=== PATIENT | male | born 1955 | race Caucasian/White ===

== ENCOUNTER → 2019-05-05 08:05 | Outpatient (BNVA) | payer MEDICARE, MEDICAID, SELFPAY | PROVIDERS: Family Provider Internal Medicine; PCP Internal Medicine; Visit Provider Specialist | DX: M25.561 Pain in right knee (principal) | CPT/HCPCS: 73560; 73565 ==

== ENCOUNTER → 2020-01-25 11:34 | Outpatient (BNVA) | payer MEDICARE, MEDICAID, SELFPAY | PROVIDERS: Family Provider Internal Medicine; PCP Internal Medicine; Visit Provider Nurse Practitioner Family | DX: Z20.828 Contact with and (suspected) exposure to other viral communicable diseases (principal); J06.9 Acute upper respiratory infection, unspecified | CPT/HCPCS: 87635 ==

== ENCOUNTER → 2020-03-23 12:19 | Outpatient (BNVA) | payer MEDICARE, MEDICAID, SELFPAY | PROVIDERS: Family Provider Internal Medicine; PCP Internal Medicine; Visit Provider Specialist | DX: M17.11 Unilateral primary osteoarthritis, right knee (principal); M17.12 Unilateral primary osteoarthritis, left knee | CPT/HCPCS: 73560; 73565 ==

== ENCOUNTER → 2020-06-22 08:07 | Outpatient (BNVA) | payer MEDICARE, MEDICAID, SELFPAY | PROVIDERS: Family Provider Internal Medicine; PCP Internal Medicine; Visit Provider Specialist | DX: M17.0 Bilateral primary osteoarthritis of knee; E66.01 Morbid (severe) obesity due to excess calories; Z68.41 Body mass index [BMI] 40.0-44.9, adult; Z87.891 Personal history of nicotine dependence | CPT/HCPCS: 73560; 73565 ==

== ENCOUNTER → 2020-07-11 10:03 | Day surgery (SDC) | payer MEDICARE, MEDICAID, SELFPAY | PROVIDERS: PCP Internal Medicine; Visit Provider Specialist | DX: Z01.818 Encounter for other preprocedural examination (principal) | CPT/HCPCS: 93005 ==

== ENCOUNTER → 2020-07-13 13:53 | Outpatient (BNVA) | payer MEDICARE, MEDICAID, SELFPAY | PROVIDERS: PCP Internal Medicine; Visit Provider Specialist | DX: M17.11 Unilateral primary osteoarthritis, right knee (principal); M17.12 Unilateral primary osteoarthritis, left knee; Z20.822 Contact with and (suspected) exposure to COVID-19 | CPT/HCPCS: 87635 ==

== ENCOUNTER 2020-07-18 14:22 | Observation (INO) | payer MEDICARE, MEDICAID, SELFPAY ==
[2020-07-11 09:34] VITALS: BMI 40.6
--- NOTE | 2020-07-11 10:03 | ECG_ITS ---
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 Measurements Intervals [place] Rate: 77 P: -31 VT: 162 QRS: 23 QRSD: 113 T: 45 QT: 391 QTc: 443 Interpretive Statements SINUS RHYTHM LOW QRS VOLTAGE IN PRECORDIAL LEADS [QRS DEFLECTION < 1.0 mV IN CHEST LEADS] INCOMPLETE RIGHT BUNDLE BRANCH BLOCK [90+ ms QRS DURATION, TERMINAL R IN V1/V2, 40+ ms S IN I/aVL/V4/V5/V6] POSSIBLE LATERAL MYOCARDIAL INFARCTION [30 ms Q WAVE IN I/aVL/V5/V6], PROBABLY OLD Compared to ECG 10/12/2016 20:23:27 Myocardial infarct finding now present Electronically Signed On 07-12-2020 7:03:26 CDT by Paulina Dennison M.D. [id number]
[2020-07-11 10:11] LABS: Add Urine Microscopic? NO; Charge for UA Resulting for Rev
[2020-07-11 10:18] LABS: Basophils # 0.1 10^3/uL (0.0-0.1); Basophils % 1.3 %; Eosinophils # 0.4 10^3/uL (0.0-0.8); Eosinophils % 5.1 %; Hematocrit 45.8 % (42.0-52.0); Hemoglobin 15.3 g/dL (11.7-16.6); Mean Corpuscular HGB Conc 33.4 g/dL (30.0-36.0); Mean Corpuscular Hemoglobin 30.9 pg (28.0-34.0); Mean Corpuscular Volume 92.5 fL (80-94); Mean Platelet Volume 9.1 fL (7.4-10.4); Monocytes # 0.5 10^3/uL (0.2-0.9); Monocytes % 7.8 %; Neutrophils # 3.78 10^3/uL (1.8-7.7); Neutrophils % 55.7 %; Nucleated Red Blood Cells % 0 %; Platelet Count 224 10^3/cmm (130-400); Red Blood Count 4.95 10^6/uL (4.1-5.3); Red Cell Distribution Width 12.5 % (12.1-15.1); White Blood Count 6.8 10^3/uL (4.0-10.0)
[2020-07-11 10:28] LABS: Bilirubin Urine Neg (Negative); Blood Urine Neg (Negative); Glucose Urine UA Norm (Normal); Ketones Urine Negative (Negative); Leukocyte Esterase Urine Negative (Negative); Nitrate Urine Negative (Negative); Protein Urine Neg (Negative); Specific Gravity, Urine 1.005 (1.005-1.030); Urine Appearance Clear (CLEAR); Urine Color Straw (Yellow); Urobilinogen Urine Norm (Negative); pH Urine 6.5 (5-7)
[2020-07-11 10:36] LABS: Alanine Aminotransferase 16 U/L (0-41); Albumin Level 3.9 g/dL (3.5-5.2); Alkaline Phosphatase 62 IU/L (40-130); Anion Gap 12.5 (5-19); Aspartate Amino Transferase 15 U/L (0-40); Blood Urea Nitrogen 17 mg/dL (8-23); Calcium 8.7 mg/dL (8.5-10.5); Carbon Dioxide 27 mmol/L (22-29); Chloride 102 mmol/L (98-107); Globulin 3.5 g/dL (1.3-4.6); Glomerular Filtration Rate 215.2 mL/min (90-130); Glucose 109 mg/dL (65-115); Osmolality Calculated 286 mOsm/kg (285-295); Potassium 4.5 mmol/L (3.5-5.1); Sodium 137 mmol/L (136-145); Total Bilirubin 0.3 mg/dL (0.15-1.2); Total Protein 7.4 g/dL (6.6-8.7)
--- NOTE | 2020-07-11 17:21 | P.ANESASSM_ITS ---
Pre-Anesthetic Assessment Pre-Anesthetic Assessment: Height/Weight: Height 1.83 m Weight 136.078 kg Proposed Procedure: Operation Date: 07/18/20 14:25 Proposed Procedures p Total Knee Arthroplasty 41695 M17.10(Right) - Perla Frost MD Was Beta Roz taken within 24 hours: N/A Was Clonidine taken within 24 hours: N/A Social: Social History: Tobacco and No alcohol Exam: Pre-Anes Outpt Exam: alert, oriented x 3, clear to auscultation bilaterally and regular rate & rhythm Airway: Submandibular: WNL Cervical ROM: Other (limited) MP: 2 Pulmonary: Pulmonary: COPD CV/HEM: CV/HEM: CAD and HTN : : None reported Hepatic: Hepatic: None reported GI: GI: None reported Metabolic: Metabolic: Morbid obesity Musc/skel: Musc/skel: OA/DJD Neuropsych: Neuropsych: Depression Anesthetic Plan: ASA status: 3 Anesthesia: Regional (specify below) (Spinal with Adductor Canal Block) Risk of > 500 ml blood loss (7ml/kg in children): Yes, adequate IV access and fluids planned PFSH Anesthesia PFSH: Social History Smoking and tobacco status: current every day smoker cigarettes Packs smoked per day: 2.5 Alcohol intake: former Data Anesthesia CBC & Chem 7: 07/11/20 09:55 07/11/20 09:55 Other Labs: Laboratory Results - last 48 hr 07/11/20 07/11/20 07/11/20 09:55 09:55 10:00 WBC 6.8 RBC 4.95 Hgb 15.3 Hct 45.8 MCV 92.5 MCH 30.9 MCHC 33.4 RDW 12.5 Plt Count 224 MPV 9.1 Neut % (Auto) 55.7 Lymph % (Auto) 30.0 [place] % (Auto) 7.8 Eos % (Auto) 5.1 Baso % (Auto) 1.3 Neut # (Auto) 3.78 Lymph # (Auto) 2.0 [place] # (Auto) 0.5 Eos # (Auto) 0.4 Baso # (Auto) 0.1 Nucleated RBC % (auto) 0 Nucleated RBCs # 0.0 Sodium 137 Potassium 4.5 Chloride 102 Carbon Dioxide 27 Anion Gap 12.5 BUN 17 Creatinine 0.4 L GFR Calculation 215.2 H Glucose 109 Calculated Osmolality 286 Calcium 8.7 Total Bilirubin 0.3 AST 15 ALT 16 Alkaline Phosphatase 62 Total Protein 7.4 Albumin 3.9 Globulin 3.5 Urine Color Straw Urine Appearance Clear Urine pH 6.5 Ur Specific [place] 1.005 Urine Protein Neg Urine Glucose (UA) Norm Urine Ketones Negative Urine Blood Neg Urine Nitrate Negative Urine Bilirubin Neg Urine Urobilinogen Norm Ur Leukocyte Esterase Negative Cardiac Studies: No Data to Display
[2020-07-18] VITALS (19 sets, daily range): BP systolic 82–147; BP diastolic 52–97; PULSE 70–98; RESP 8–20; TEMP 36.9–37.7; O2SAT 91–97
[2020-07-18] MEDS: acetaminophen 1,000 MG/100 ML PIGGYBACK 400 MG IV ×2 (08:55→17:35)
[2020-07-18] MEDS: CELEcoxib 200 mg Capsule 400 MG PO (09:03)
--- NOTE | 2020-07-18 09:31 | P.ANESUD_ITS ---
Pre-Anesthetic Update Pre-Anesthetic Assessment: Date of Surgery/Procedure: 07/18/20 Preop Pauline gnosis: Primary osteoarthritis right knee Proposed Procedure: Operation Date: 07/18/20 10:35 Proposed Procedures p Total Knee Arthroplasty 51513 M17.10(Right) - Perla Frost MD Any changes to Pre-Anesthetic Assessment?: No Last Intake: Intake Last Liquid Date 07/17/20 Last Liquid Time 22:00 Last Solid Date 07/17/20 Last Solid Time 22:00 Vitals: Temperature 98.4 F 07/18/20 08:33 Temperature Source Temporal Artery S can 07/18/20 08:33 Pulse Rate 80 07/18/20 08:33 Pulse Rhythm 07/18/20 08:33 Pulse Strength 3+ Normal 07/18/20 08:33 Respiratory Rate 18 07/18/20 08:33 Blood Pressure 134/97 07/18/20 08:33 Blood Pressure Yesika n 109 07/18/20 08:33 Pulse Oximetry 94 07/18/20 08:33 Oxygen Delivery Me thod 07/18/20 08:33 Exam: Pre-Anes Outpt Exam: alert, oriented x 3, clear to auscultation bilaterally and regular rate & rhythm Cardiac Studies: No Data to Display
--- NOTE | 2020-07-18 09:41 | P.HPUD_ITS ---
Surgery/Procedure H&P Update DATE OF PROCEDURE: July 18, 2020 DATE H&P PERFORMED: 06/22/20 H&P UPDATE INFORMATION: I have reviewed H&P completed within last 30 days, I have examined patient prior to procedure, No changes to prior documentation and H&P is in [facility] EMR on date indicated PREOP DIAGNOSIS: Primary osteoarthritis right knee PLANNED PROCEDURE: Operation Date: 07/18/20 10:35 Proposed Procedures p Total Knee Arthroplasty 24110 M17.10(Right) - Perla Frost MD Related Problem List Diagnoses (1) Primary osteoarthritis of right knee:
--- NOTE | 2020-07-18 09:47 | ANES.PROC ---
Anesthesia Procedures Procedure/Date: 07/18/20 Nerve Block ^: Nerve Block 1: Main Anesthesia: general anesthesia Time Out Performed: Yes Consent: requested by attending/covering physician, from patient, risks and benefits reviewed and patient agrees to proceed Nerve block location: adductor canal (R) Anesthesia monitors applied: pulse oximetry, EKG, BP cuff and oxygen Nerve block position: supine Anesthetic Used: ropivicaine 0.5% and with decadron (4 mg) Amount of anesthesia used (mL): 30 Ultrasound used to: recognize landmarks and visualize and ID femerol nerve Nerve Stimulator Used?: No Interscalene/Femoral BLK: 4 stimuplex 21 g needle used for position and inplane approach, visualize local anesthetic spread and no vascular puncture identified Injection: neg aspiration of heme Patient Tolerated Procedure: well Complications: none
[2020-07-18] MEDS: vancomycin 1,000 MG in sodium chloride 0.9% 250 ML 250 MG IV (11:02)
[2020-07-18] MEDS: vancomycin 1,000 MG SDV 1000 MG XX (12:44)
[2020-07-18] MEDS: ceFAZolin 1,000 mg SDV 2000 MG IRRIGATION (12:45)
--- NOTE | 2020-07-18 14:01 | XR_ITS ---
WS: [id number] Exam: XR knee RT 1-2V 77932 Date/Time of Exam: 07/18/2020 2:01 PM Reason For Exam: Total Knee A total knee prosthesis has been placed and appears to be in excellent position. Postoperative change s in the adjacent soft tissues. Anterior surgical skin clips. XR/XR knee RT 1-2V 36629 IMPRESSION: 1. Total knee replacement in satisfactory alignment.
[2020-07-18] MEDS: morphine 4 mg/mL SDV 1 mL 2 MG IVP (14:04)
--- NOTE | 2020-07-18 14:11 | P.OP_ITS ---
Operative Report Date of procedure: July 18, 2020 Pre-op Diagnosis: Primary osteoarthritis right knee with significant valgus deformity Post-op diagnosis: same Post-op Findings: Significant valgus deformity and degenerative osteoarthritic changes Procedure Done: Right total knee arthroplasty Implants: The Wenceslao total knee system with a size 5 triathlon beaded posterior stabilized femur right, a triathlon titanium tibial component size 6 beaded, a triathlon X3 posterior stabilized tibial bearing insert size 6 X 16 mm and a beaded triathlon titanium asymmetric patella size 38 x 11 mm Specimens removed/disposition: Bone, disposed of Pathology: none sent Surgeon: Perla Frost Offset Assistant Press Operator: Healthcare operating room technicians Anesthesia: General (Intubated, ASA 3 with failed spinal attempt) Estimated blood loss (mL): 25 Tourniquet time (min): 93 Tourniquet time: At 250 mmHg IV fluids (mL): 1,100 Urine output (mL): 300 Complications: None Findings: Valgus deformity with severe degenerative osteoarthritic changes Condition: stable Disposition: PACU (Then to floor for postoperative rehabilitation and pain management with initiation of physical therapy) Brief History: This 65-year-old man presented to the office with severe bilateral knee pain which was incapacitating. He had severe valgus deformity of both knees with the right knee worse than the left. He was unable to ambulate or perform reasonable activities of daily living. None of these activities were able to be accomplished comfortably. He was unresponsive to conservative measures and wished to proceed with right total knee arthroplasty risks and complications were discussed. Consents were signed preoperatively, and questions were answered. The patient wished to proceed. Procedure: The patient was brought to the operating theater, and after undergoing adequate general intubated anesthesia supplemented with regional block, ASA 3, the right lower extremity was prepped with Dura-Prep and draped in usual fashion following placement of a tourniquet high on the leg. Spinal was attempted, but was unable to be completed. The leg was then draped free. Following prepping and draping, the leg was exsanguinated, and the tourniquet was elevated to 250 mmHg for a total tourniquet time of 93 minutes. Prior to elevation of the tourniquet, but following exposure of the site of surgery, a surgical pause was performed. At the time of the surgical pause, we confirmed the site and side of surgery. Additionally, we confirmed the appropriate and timely administration of preoperative antibiotics, vancomycin 1 g. and Transexemic acid 1 g. The availability of equipment was confirmed, and the patient's identity was verbalized as well. Following the surgical pause, an incision was made centering over the patella continuing proximally and distally as necessary to allow access to the knee joint. Dissection continued through skin and soft tissues using a scalpel. Hemostasis was obtained using electrocautery. The skin incision was followed by a median parapatellar arthrotomy. The leg was extended and the patella was everted. Following this, the leg was returned to flexed position. The distal femur was exposed, and a drill hole was made in this for placement of the distal femoral jig. The distal femoral jig was set at 5? of valgus. The distal femoral cutting block was then placed in appropriate position, and an polo wing was used to confirm an appropriate amount of distal femur would be resected. The distal femoral resection was accomplished with 8 mm of bone being resected distally. After the distal femoral resection had been accomplished, the femur was measured and it measured a size 5. Medial lateral dimension also measured a size 5. A size 5 femoral cutting block was placed in position, and we were then able to accomplish the anterior, posterior and chamfer cuts. This jig was then removed and the notch guide was placed in position. With the notch guide in appropriate position, the notch was excised including resection of the anterior and posterior cruciate ligaments. This notch was to allow for the posterior stabilized femoral component. At this point, the femur was prepared and attention was directed to the proximal tibia. The posterior knee retractor was placed along with medial and lateral retractors. Further resection of the menisci was accomplished as we had better visualization. A complete meniscectomy was performed both medially and laterally with care being taken to protect the popliteus. Retractors were then placed so that the proximal tibia was well visualized. A drill hole was then made in the tibia for placement of the intramedullary guide. This guide was placed so that approximately 2 mm of bone would be resected from the deficient lateral tibial plateau. The intramedullary guide was utilized supplemented with an extramedullary guide to assure appropriate alignment for the proximal tibial resection. The proximal tibial jig was then evaluated, pinned in position, and the proximal tibial resection was accomplished without difficulty. The jig was removed, and the proximal tibia was measured. It measured a size 6. We then attempted a trial reduction with a size 6 by 11 mm and 6 by 13 mm insert. Osteophytes were also removed from the tibia. The femoral component was placed in position for the trial reduction, and the knee was placed through range of motion. With this, there was appropriate patellar tracking. The knee was found to be slightly tight in the posterior aspect, and posterior release was accomplished. Extension was noted to be full as well. After the knee was manipulated following the posterior release, we were able to insert a size 6 x 16 mm insert. With this we had excellent varus valgus alignment and full extension. The knee was stable to varus valgus stress as well. Therefore, this was the chosen component. There was full extension and flexion without lift off and the rotation of the tibia was marked. Alignment was checked from the hip to the ankle, and this was noted to be appropriate as well. Attention was then directed to the patella. The patella was measured with a caliper. We resected sufficient patella to leave approximately 14 mm of patella remaining. Measurements of the patella then indicated that a size asymmetric 38 mm x 11 mm was the appropriate patellar size. We then placed the jig to drill for the 3 pegs of the press-fit patella, and these drill holes were made without incident. A trial patella was then placed, and the knee was placed through range of motion. The patella was noted to track nicely without evidence of subluxation. The femur was prepared for a press-fit femur by drilling 2 holes for the femoral pegs. All trial components were subsequently removed. The tibial tray was then pinned into position, and we broached the tibia for the stem of the tibial component. Subsequently, 4 drill holes were made for placement of the press-fit tibia. This was accomplished without difficulty. Care was taken to assure appropriate rotation of the tibia as well as appropriate position on the proximal tibia. The tibial tray was completely seated on the proximal tibia. Following broaching, the tibial guide was removed, and all surfaces were copiously irrigated. The surfaces were then dried and a bone plug was placed into the distal femur. Exparel was also injected at this point. The Tritanium tibia was impacted into position. The beaded femur was then impacted into position in a cementless fashion. The tibial insert was placed. The patella was pressed into position with a patellar clamp. The knee was irrigated with 20 mL of Betadine and 500 mL of normal saline, and this was allowed to remain in the knee for 3-4 minutes. The knee was then copiously irrigated and suctioned dry. Attention was then directed to closure. Closure was accomplished with 0 Vicryl in the fascial tissues. Following this, a 2-0 Monocryl was used in the subcutaneous tissues, and the skin was closed with skin charis. A sterile dressing was then placed consisting of Dermabond Prineo, Telfa, 4x4's, sterile soft roll, and an Sushil wrap. The patient was returned the Recovery Room in a satisfactory condition. X-rays were obtained there. The patient will be discharged to the floor for postoperative rehabilitation and pain management. Associated Problem List Diagnoses (1) Primary osteoarthritis of right knee:
--- NOTE | 2020-07-18 16:53 | PC.NURSE ---
patient is still not passing gas. patient requesting a stool softener. property underwriter notified Dr Ravi.
--- NOTE | 2020-07-18 17:09 | ANE.PACU2 ---
Inpatient post-anesthesia follow up: Airway intact: Yes Vital signs: Temperature 98.5 F Pulse Rate 78 Respiratory Rate 17 Blood Pressure 142/79 Pulse Oximetry 96 Oxygen Delivery Me thod Nasal Cannula Oxygen Flow Rate 2 Fraction of Inspir ed Oxygen Hydration adequate: Yes Nausea and vomiting: No Pain level: 2 Mental status: Baseline
[2020-07-18] MEDS: iron polysaccharide complex 150 mg Capsule PO (17:34)
[2020-07-18] MEDS: sennosides-docusate Tablet 2 TAB PO (17:34)
[2020-07-18] MEDS: calcium carbonate 500 mg Chew Tablet 1000 MG PO (17:34)
[2020-07-18] MEDS: mupirocin oint 22 gm 1 APPLIC NASAL (17:35)
[2020-07-18] MEDS: chlorhexidine gluconate 0.12% Btl 473 mL 30 ML MUCOUS MEM ×2 (17:35→21:37)
[2020-07-18] MEDS: oxyCODONE 5 mg IR Tab/Cap PO (21:37)
[2020-07-18] MEDS: CELEcoxib 200 mg Capsule PO (21:37)
[2020-07-19] VITALS: BP 109/68; PULSE 73; RESP 20; TEMP 36.9; O2SAT 92
[2020-07-19] MEDS: acetaminophen 1,000 MG/100 ML PIGGYBACK 400 MG IV ×2 (00:31→08:08)
[2020-07-19 02:44] LABS: Basophils % 0.2 %; Hematocrit 40.5 % (42.0-52.0); Hemoglobin 13.3 g/dL (11.7-16.6); Lymphocytes # 1.4 10^3/uL (0.8-4.8); Lymphocytes % 9.9 %; Mean Corpuscular HGB Conc 32.8 g/dL (30.0-36.0); Mean Corpuscular Hemoglobin 30.8 pg (28.0-34.0); Mean Corpuscular Volume 93.8 fL (80-94); Mean Platelet Volume 9.1 fL (7.4-10.4); Monocytes # 0.8 10^3/uL (0.2-0.9); Neutrophils # 11.69 10^3/uL (1.8-7.7); Neutrophils % 83.6 %; Nucleated Red Blood Cells % 0 %; Platelet Count 210 10^3/cmm (130-400); Red Blood Count 4.32 10^6/uL (4.1-5.3); Red Cell Distribution Width 12.1 % (12.1-15.1)
[2020-07-19 03:00] LABS: Anion Gap 9.7 (5-19); Blood Urea Nitrogen 18 mg/dL (8-23); Calcium 7.9 mg/dL (8.5-10.5); Carbon Dioxide 28 mmol/L (22-29); Chloride 102 mmol/L (98-107); Glomerular Filtration Rate 166.4 mL/min (90-130); Glucose 133 mg/dL (65-115); Osmolality Calculated 284 mOsm/kg (285-295); Potassium 4.7 mmol/L (3.5-5.1); Sodium 135 mmol/L (136-145)
[2020-07-19 03:59] VITALS: BP 115/63; PULSE 72; RESP 19; TEMP 36.8; O2SAT 97
[2020-07-19 07:21] VITALS: BP 113/67; PULSE 71; RESP 18; TEMP 36.9; O2SAT 96
[2020-07-19 07:53] VITALS: PULSE 76; RESP 18; O2SAT 92
[2020-07-19] MEDS: montelukast sodium 10 mg Tablet PO (08:06)
[2020-07-19] MEDS: multivitamin therapeutic Tablet 1 TAB PO (08:06)
[2020-07-19] MEDS: loratadine 10 mg Tablet PO (08:06)
[2020-07-19] MEDS: PARoxetine 20 mg Tablet 10 MG PO (08:06)
[2020-07-19] MEDS: calcium carbonate 500 mg Chew Tablet 1000 MG PO (08:07)
[2020-07-19] MEDS: hydroCHLOROthiazide 25 mg Tablet 12.5 MG PO (08:07)
[2020-07-19] MEDS: lisinopril 20 mg Tablet PO (08:07)
[2020-07-19] MEDS: aspirin 325 mg EC Tablet PO (08:07)
[2020-07-19] MEDS: TRAMadol 50 mg Tablet PO (08:07)
[2020-07-19] MEDS: gabapentin 300 mg Capsule PO (08:07)
[2020-07-19] MEDS: cholecalciferol (vitamin D3) 5,000 unit Tablet 10000 UNIT PO (08:08)
[2020-07-19] MEDS: chlorhexidine gluconate 0.12% Btl 473 mL 30 ML MUCOUS MEM ×2 (08:08→12:10)
[2020-07-19] MEDS: CELEcoxib 200 mg Capsule PO (08:08)
[2020-07-19] MEDS: sennosides-docusate Tablet 2 TAB PO (08:08)
[2020-07-19] MEDS: iron polysaccharide complex 150 mg Capsule PO (08:08)
[2020-07-19] MEDS: vancomycin 1,000 MG in sodium chloride 0.9% 250 ML 250 MG IV (08:09)
[2020-07-19] MEDS: mupirocin oint 22 gm 1 APPLIC NASAL (08:12)
--- NOTE | 2020-07-19 10:05 | PC.CHAP ---
Pastoral Care Encounter/Spiritual Assessment Type of Contact [] Declined laundry housekeeping aide visit [] Patient/Family/Request visit [] Outpatient visit [] Follow-up visit [] Physician referral [] Code/Alert [x] Routine visit [] Staff referral [] Actively dying [] Patient sleeping [] Family support [] [] Out of room [] Palliative care [] [] Receiving care in room [] Pre-surgical visit [] Trauma [] Long length of stay [] ICU visit [] Other: Relational/Emotional Strength [x] Patient feels connected with others/family/visitors/staff [] Distress [] Loneliness/isolation [] Abandonment Spirituality of Patient [x] Person of Dina [] Attends Hindu of their Dina [x] Believes in Prayer [] Reads Bible or Scientology materials [] There are Spiritual issues to be addressed Derrick Hand Interventions [x] Prayer [] Active listening [] Non-anxious presence [] Spiritual/emotional support [] Crisis/trauma care [] Spiritual counseling [] Bereavement support [] Provided bereavement packet [x] Provided Bible/devotional materials [] Provided toy/stuffed animal, coloring book to patient or family member [] Provided Communion [] Anointing/[place] [] Salvation [x Impact on Illness or Injury [] Angry [] Fearful [] Anxious [] Often cries [] Exhaustion [] Unable to work [] Unable to attend latter day [] Unable to walk/stand [] Unable to read [] Unable to drive [] Unable to eat/drink [] Unable to sleep [] Unable to be with family [] Patient intubated [] Other: Summary Time spent with patient 10 min
[2020-07-19 10:58] VITALS: BP 119/77; PULSE 74; RESP 18; TEMP 36.7; O2SAT 95
--- NOTE | 2020-07-19 13:05 | PC.NURSE ---
dressing removed by Dr Frost. typewriter operator automatic applied island dressing.
--- NOTE | 2020-07-19 13:33 | P.DS_ITS ---
Discharge Providers Date of Admission: 07/18/20 14:22 Date of Discharge: July 19, 2020 Attending Provider at Admission: Perla Frost MD Attending Provider at Discharge: Perla Frost MD Primary Care Provider: Marilynn Canales Diagnoses at Discharge Discharge Diagnosis (1) Primary osteoarthritis of right knee: Status: Acute (2) History of total right knee replacement: Status: Acute Reason for Visit Reason for Visit: Osteoarthritis right knee Physical Exam Const: COMMON NORMALS: no acute distress, average body habitus, patient oriented x3 and alert GENERAL APPEARANCE: cooperative and comfortable ORIENTATION/CONSCIOUSNESS: Yes awake HENMT: COMMON NORMALS: normocephalic and atraumatic HEAD & SCALP: normocephalic and atraumatic Eye: GENERAL EYE: appearance normal, both eyes and all related structures Chest: COMMONS NORMALS: normal inspection of the chest Resp: COMMON NORMALS: normal respiratory effort EFFORT & INSPECTION: Yes able to speak in complete sentences and Yes symmetric chest movement Extremity: RIGHT LOWER EXTREMITY: Yes knee joint (No drainage. Dressing removed, Prineo intact) Right knee: Yes inspection (Dressing is removed and there is minimal to no bruising.), Yes palpation (Minimal tenderness. ), Yes ROM (Able to straight leg raise.) and Yes neurovascular exam (Intact with no evidence of DVT.) Neuro: COMMON NORMALS: patient oriented x3 SENSORIUM/ORIENTATION: Yes alert Psych: COMMON NORMALS: mental status grossly normal APPEARANCE: Yes grossly normal ATTITUDE: Yes calm and Yes engaged ATTENTION/CONCENTRATION: Yes attention grossly intact Skin: COMMON NORMALS: no rashes or lesions noted GENERAL SKIN EXAM: no rashes or lesions noted Urinary Catheter Management^: F: Cath Placed During This Visit: yes, but has since been removed by the nurse Reason for Continuing Indwelling Catheter: Decision to DC Catheter Urinary Catheter Date of Insertion: 07/18/20 Urinary Catheter Time of Insertion: 11:15 Date Urinary Catheter Removed: 07/19/20 Time Urinary Catheter Discontinued: 06:15 Discharge Data Data Completed and Pending: Completed Studies During Hospitalization Category Date Time Status XR knee RT 1-2V 7 3560 Urgent Exams 07/18/20 14:01 Completed Labs from last 24 hours 07/19/20 07/19/20 02:20 02:20 WBC 14.0 H RBC 4.32 Hgb 13.3 Hct 40.5 L MCV 93.8 MCH 30.8 MCHC 32.8 RDW 12.1 Plt Count 210 MPV 9.1 Neut % (Auto) 83.6 Lymph % (Auto) 9.9 [place] % (Auto) 6.0 Eos % (Auto) 0.0 Baso % (Auto) 0.2 Neut # (Auto) 11.69 H Lymph # (Auto) 1.4 [place] # (Auto) 0.8 Eos # (Auto) 0.0 Baso # (Auto) 0.0 Nucleated RBC % (a uto) 0 Nucleated RBCs # 0.0 Sodium 135 L Potassium 4.7 Chloride 102 Carbon Dioxide 28 Anion Gap 9.7 BUN 18 Creatinine 0.5 L GFR Calculation 166.4 H Glucose 133 H Calculated Osmolal ity 284 L Calcium 7.9 L Vitals: Last Vital Signs Temp 98.0 F 07/19/20 10:58 Pulse 74 07/19/20 10:58 Resp 18 07/19/20 10:58 BP 119/77 07/19/20 10:58 Pulse Ox 95 07/19/20 10:58 Discharge Plan Discharge Patient Disposition: Home Health Service Condition: Stable Prescriptions: New acetaminophen 500 mg Tablet 1,000 mg PO Q8H 15 Days Qty: 90 RF: 0 aspirin 325 mg Tablet,Delayed Release (Dr/Ec) 325 mg PO DAILY 30 Days Qty: 0 RF: 0 celecoxib 200 mg Capsule 200 mg PO DAILY Qty: 30 RF: 0 Continued cholecalciferol (vitamin D3) 10,000 unit capsule 10,000 unit PO DAILY RF: 0 gabapentin [Neurontin] 300 mg capsule 300 mg PO DAILY RF: 0 montelukast [Singulair] 10 mg tablet 10 mg PO DAILY RF: 0 albuterol sulfate 90 mcg/actuation aerosol powdr breath activated 2 inh INHALATION Q6H PRN (Reason: Shortness Of Breath) RF: 0 guaifenesin 400 mg tablet 400 mg PO QID RF: 0 nitroglycerin [Nitrostat] 0.4 mg tablet, sublingual 0.4 mg SUBLINGUAL Q5M PRN (Reason: Chest Pain) RF: 0 albuterol sulfate [Proventil HFA] 90 mcg/actuation HFA aerosol inhaler 2 puff INHALATION Q6H PRN (Reason: Shortness Of Breath) RF: 0 ibuprofen [IBU] 800 mg tablet 800 mg PO Q8H RF: 0 tramadol 50 mg tablet 50 mg PO DAILY RF: 0 loratadine [Allergy Relief (loratadine)] 10 mg tablet 10 mg PO DAILY RF: 0 paroxetine HCl 10 mg tablet 10 mg PO DAILY RF: 0 hydrochlorothiazide 12.5 mg capsule 12.5 mg PO DAILY RF: 0 lisinopril 20 mg tablet 20 mg PO DAILY RF: 0 Held aspirin [Adult Low Dose Aspirin] 81 mg tablet,delayed release (DR/EC) 81 mg PO DAILY RF: 0 Hold Instructions: Resume on 08/16/20. Discharge Orders: Discharge Order (Routine); Ordered 07/19/20 Ordered By: Perla Frost Referrals: Perla Frost MD [Physician] - 08/04/20 10:00 am (This will be for a nurse visit and staple removal. You will then follow-up with me on August 09 at 11:45 AM) Discharge Diet: Advance as tolerated and Usual diet Discharge Activity: Increase activity as tolerated, Limit activity as instructed, Use walker/crutches as instructed and As per PT/OT instructions Patient Instructions: Acetaminophen (By mouth), Aspirin (By mouth), Celecoxib (By mouth), Total Knee Replacement (DC), Surgical Site Infections (GEN), Opioid Safety Activity Restrictions/Additional Instructions: Ice and elevation to right lower extremity. Gait training, strengthening, and range of motion per physical therapy. Discharge Attestations Time Spent in Discharge Care*: greater than 30 min Specific Discharge Activities: educating patient, documenting/other paperwork and evaluating patient/reviewing data Quality Metrics Clinical Quality Measures During this hospital stay, did patient experience: None Coding Level of Care Code Acute [facility] DC note Diagnoses Primary osteoarthritis of right knee M17.11 History of total right knee replacement Z96.651
--- NOTE | 2020-07-19 14:20 | PC.NURSE ---
discharge instructions given to patient. patient verbalized understanding. patient taken to private vehicle via wheelchair by staff.
[2020-07-19 14:22] VITALS: BP 119/77; PULSE 74; RESP 18; TEMP 36.7; O2SAT 95
--- NOTE | 2020-07-21 14:31 | PC.RESP ---
Smoking Cessation information sent to patient.
--- NOTE | 2021-05-08 09:06 | ECG_ITS ---
[facility] Test Date: 2021-05-09 Pat Name: Matthew Cary Department: Room: 261 Gender: Male Tiller Man: : 1955 Requested By: Perla Frost Order Number: [id number] Ana Maria MD: Preston Edgar M.D. Measurements Intervals [place] Rate: 92 P: 45 NE: 164 QRS: 10 QRSD: 89 T: 11 QT: 354 QTc: 438 Interpretive Statements SINUS RHYTHM LOW QRS VOLTAGE IN PRECORDIAL LEADS [QRS DEFLECTION < 1.0 mV IN CHEST LEADS] POSSIBLE RIGHT VENTRICULAR CONDUCTION DELAY [RSR (QR) IN V1/V2] Compared to ECG 05/08/2021 09:12:13 Incomplete right bundle-branch block no longer present Myocardial infarct finding no longer present Electronically Signed On 05-09-2021 18:51:28 CDT by Preston Edgar M.D. [email or web address]
== END 2020-07-19 14:23 | disposition home health service (06) ==
LOC: MEDSURG 14:22
PROVIDERS: Admitting Provider Specialist; PCP Internal Medicine; Visit Provider Specialist
PROC: (CPT 27447; principal; 2020-07-18 10:15)
DX: M17.11 Unilateral primary osteoarthritis, right knee (principal); J44.9 Chronic obstructive pulmonary disease, unspecified; I25.10 Atherosclerotic heart disease of native coronary artery without angina pectoris; I10 Essential (primary) hypertension; E66.01 Morbid (severe) obesity due to excess calories; Z68.41 Body mass index [BMI] 40.0-44.9, adult; F32.9 Major depressive disorder, single episode, unspecified; F17.210 Nicotine dependence, cigarettes, uncomplicated; Z79.82 Long term (current) use of aspirin
CPT/HCPCS: 27447; 36415; 64447; 73560; 76942; 80048; 80053; 81003; 85025; 96365; 97110; 97116; 97161; 97165; 97530; C1776; C9290; G0378; J0330; J0690; J1100; J1170; J2270; J2405; J2704; J2710; J2795; J3010; J3370; J3490; J7050

== ENCOUNTER → 2020-08-09 11:49 | Outpatient (BNVA) | payer MEDICARE, MEDICAID, SELFPAY | PROVIDERS: PCP Internal Medicine; Visit Provider Specialist | DX: Z96.651 Presence of right artificial knee joint (principal); Z47.1 Aftercare following joint replacement surgery | CPT/HCPCS: 73560; 73565 ==

== ENCOUNTER → 2020-09-25 08:03 | Outpatient (BNVA) | payer MEDICARE, MEDICAID, SELFPAY | PROVIDERS: PCP Internal Medicine; Visit Provider Specialist | DX: Z47.1 Aftercare following joint replacement surgery (principal); Z96.651 Presence of right artificial knee joint; M17.12 Unilateral primary osteoarthritis, left knee | CPT/HCPCS: 73560; 73565 ==

== ENCOUNTER → 2021-04-02 08:08 | Outpatient (BNVA) | payer MEDICARE, MEDICAID, SELFPAY | PROVIDERS: PCP Internal Medicine; Visit Provider Specialist | DX: Z96.651 Presence of right artificial knee joint (principal) | CPT/HCPCS: 73560; 73565 ==

== ENCOUNTER → 2021-04-16 14:50 | Outpatient (BNVA) | payer MEDICARE, MEDICAID, SELFPAY | PROVIDERS: PCP Internal Medicine; Visit Provider Specialist | DX: Z96.651 Presence of right artificial knee joint (principal); M17.12 Unilateral primary osteoarthritis, left knee | CPT/HCPCS: 73560; 73565 ==

== ENCOUNTER → 2021-05-08 08:59 | Day surgery (SDC) | payer MEDICARE, MEDICAID, SELFPAY | PROVIDERS: PCP Internal Medicine; Visit Provider Specialist | DX: Z01.818 Encounter for other preprocedural examination (principal) | CPT/HCPCS: 81003; 85025; 93005 ==

== ENCOUNTER → 2021-05-08 09:06 | Day surgery (SDC) | payer MEDICARE, MEDICAID, SELFPAY | PROVIDERS: PCP Internal Medicine; Visit Provider Specialist | DX: Z01.818 Encounter for other preprocedural examination (principal) | CPT/HCPCS: 93005 ==

== ENCOUNTER → 2021-05-09 00:01 | Outpatient (BNVA) | payer MEDICARE, MEDICAID, SELFPAY | PROVIDERS: PCP Internal Medicine; Visit Provider Specialist | DX: Z20.822 Contact with and (suspected) exposure to COVID-19 (principal); M17.12 Unilateral primary osteoarthritis, left knee | CPT/HCPCS: 87635 ==

== ENCOUNTER 2021-05-15 14:18 | Observation (INO) | payer MEDICARE, MEDICAID, SELFPAY ==
[2021-05-08 08:20] VITALS: BMI 40.8
--- NOTE | 2021-05-08 08:38 | ECG_ITS ---
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 Measurements Intervals [place] Rate: 74 P: -35 MI: 150 QRS: 32 QRSD: 117 T: 24 QT: 414 QTc: 461 Interpretive Statements SINUS RHYTHM LOW QRS VOLTAGE IN PRECORDIAL LEADS [QRS DEFLECTION < 1.0 mV IN CHEST LEADS] INCOMPLETE RIGHT BUNDLE BRANCH BLOCK [90+ ms QRS DURATION, TERMINAL R IN V1/V2, 40+ ms S IN I/aVL/V4/V5/V6] POSSIBLE LATERAL MYOCARDIAL INFARCTION , PROBABLY OLD [30 ms Q WAVE IN I/aVL/V5/V6] Compared to ECG 07/11/2020 10:18:51 No significant changes Electronically Signed On 05-09-2021 18:49:43 CDT by Preston Edgar M.D. [id number]
--- NOTE | 2021-05-08 09:12 | P.ANESASSM_ITS ---
Pre-Anesthetic Assessment Height/Weight: Height 1.83 m Weight 136.531 kg Preop Diagnosis: Primary osteoarthritis right knee with significant valgus deformity Operation Date: 05/15/21 07:00 Proposed Procedures p Total Knee [id number]/osteoarthritis left knee M17.10(Left) - Perla Frost MD Familial anesthetic complications: None Social Tobacco 2 pack(s) per day Exam alert, oriented x 3 and regular rate & rhythm b/l lung sounds diminished Airway Submandibular: within normal limits Cervical ROM: within normal limits Mallampati: Class III Dentition: false (Sole upper tooth remnant ) Pulmonary Exertional Dyspnea CV/HEM Arrythmia (Incomplete RBB), Coronary Artery Disease and Myocardial Infarction METS = 4 Hx of enlarged heart None reported Hepatic None reported GI None reported Metabolic Morbid Obesity [facility] [place]/skel None reported Neuropsych None reported Anesthetic Plan ASA status: 3 Anesthesia: Anesthesia Evaluation and General Other: We discussed risk and benefits of general anesthesia including PONV, sore throat (sometimes severe), corneal abrasion, positioning and peripheral nerve injuries, life threatening allergic reaction, post operative ICU admission requiring prolonged intubation, stroke, heart attack, , and rare incidences of recall. Patient consents to proceed with general anesthesia with adductor canal block for post op pain control . We discussed risk and benefits of nerve block for post op pain control including management of pain and titration of pain medications as signs/symptoms of nerve block wearing off begin to appear and/or prior bed. We discussed risk of failed nerve block, vascular injury or other vital structure injury, abscess/infection, LAST, and nerve injury. Prior TKA spinal attempted several times per patient, would prefer general with adductor canal block for post op pain control. Risk of > 500 ml blood loss (7ml/kg in children): No Medications/Allergies Home Medications Medication Instructions Recorded Confirmed Last Taken Type albuterol sulfate 90 mcg/actuation 2 puff INHALATION Q6H PRN 05/05/19 05/08/21 06/07/20 History aerosol inhaler (Proventil HFA) aspirin 81 mg tablet,delayed 81 mg PO DAILY 05/05/19 05/08/21 07/04/20 History release (Adult Low Dose Aspirin) cholecalciferol (vitamin D3) 250 10,000 unit PO DAILY 05/05/19 05/08/21 07/10/20 History mcg (10,000 unit) capsule gabapentin 300 mg capsule 300 mg PO DAILY 05/05/19 05/08/21 07/10/20 20:00 History (Neurontin) guaifenesin 400 mg tablet 400 mg PO QID 05/05/19 05/08/21 07/10/20 History hydrochlorothiazide 12.5 mg capsule 12.5 mg PO DAILY 05/05/19 05/08/21 07/10/20 History ibuprofen 800 mg tablet (IBU) 800 mg PO Q8H 05/05/19 05/08/21 07/10/20 History lisinopril 20 mg tablet 20 mg PO DAILY 05/05/19 05/08/21 07/10/20 History loratadine 10 mg tablet (Allergy 10 mg PO DAILY 05/05/19 05/08/21 07/10/20 History Relief (loratadine)) montelukast 10 mg tablet 10 mg PO DAILY 05/05/19 05/08/21 07/10/20 History (Singulair) nitroglycerin 0.4 mg sublingual 0.4 mg SUBLINGUAL Q5M PRN 05/05/19 05/08/21 Unknown History tablet (Nitrostat) paroxetine HCl 10 mg tablet 10 mg PO DAILY 05/05/19 05/08/21 07/10/20 History tramadol 50 mg tablet 50 mg PO DAILY 05/05/19 05/08/21 07/10/20 History celecoxib 200 mg capsule 200 mg PO DAILY #30 cap 07/19/20 05/08/21 Unknown Rx Allergies Allergy/AdvReac Type Severity Reaction Status Date / Time No Known Allergies Allergy Verified 04/16/21 14:41 [facility] Anesthesia Medical History Enlarged heart History of high blood pressure Social History Smoking and tobacco status: current every day smoker cigarettes Packs smoked per day: 2.5 Alcohol intake: former Data Anesthesia Cardiac Studies: No Data to Display
[2021-05-08 17:43] LABS: Hemoglobin 15.6 g/dL (11.7-16.6); Mean Corpuscular HGB Conc 33.2 g/dL (30.0-36.0); Mean Corpuscular Hemoglobin 31.3 pg (28.0-34.0); Mean Corpuscular Volume 94.4 fl (80-94); Platelet Count 240 10^3/cmm (130-400); Red Blood Count 4.98 10^6/uL (4.1-5.3); White Blood Count 7.5 10^3/uL (4.0-10.0)
[2021-05-08 17:43] LABS: Add Urine Microscopic? NO; Bilirubin Urine Neg (Negative); Blood Urine Neg (Negative); Glucose Urine UA Norm (Normal); Ketones Urine Negative (Negative); Leukocyte Esterase Urine Negative (Negative); Nitrate Urine Negative (Negative); Protein Urine Neg (Negative); Urine Appearance Clear (CLEAR); Urine Color Yellow (Yellow); Urobilinogen Urine Norm (Negative); pH Urine 7 (5-7)
[2021-05-08 17:44] LABS: Basophils # 0.1 10^3/uL (0.0-0.1); Basophils % 1.5 %; Eosinophils # 0.3 10^3/uL (0.0-0.8); Eosinophils % 4.4 %; Lymphocytes # 2.7 10^3/uL (0.8-4.8); Lymphocytes % 36.8 %; Mean Platelet Volume 9.2 fL (7.4-10.4); Monocytes # 0.6 10^3/uL (0.2-0.9); Monocytes % 8.3 %; Neutrophils # 3.64 10^3/uL (1.8-7.7); Neutrophils % 48.9 %; Nucleated Red Blood Cells % 0 %
[2021-05-08 17:44] LABS: Charge for UA Resulting for Rev
[2021-05-15] VITALS (24 sets, daily range): BP systolic 124–182; BP diastolic 68–107; PULSE 75–106; RESP 16–20; TEMP 36.4–37; O2SAT 90–97; BMI 40.7
[2021-05-15] MEDS: CELEcoxib 200 mg Capsule 400 MG PO (06:40)
[2021-05-15] MEDS: acetaminophen 1,000 MG/100 ML PIGGYBACK 400 MG IV ×3 (06:40→22:35)
[2021-05-15] MEDS: sodium chloride 0.9% 1,000 ML 30 ML IV (06:42)
--- NOTE | 2021-05-15 06:45 | P.ANESUD_ITS ---
Pre-Anesthetic Update Pre-Anesthetic Assessment: Date of Surgery/Procedure: 05/15/21 Preop Pauline gnosis: Degenerative osteoarthritis left knee Proposed Procedure: Operation Date: 05/15/21 07:00 Proposed Procedures p Total Knee [id number]/osteoarthritis left knee M17.10(Left) - Perla Frost MD Any changes to Pre-Anesthetic Assessment?: No Last Intake: Intake Last Liquid Date 05/14/21 Last Liquid Time 22:30 Last Solid Date 05/14/21 Last Solid Time 16:00 Labs Last 48hrs: BMP 05/15/21 06:42 Sodium 136 Potassium 4.1 Chloride 99 Carbon Dioxide 28 BUN 21 Creatinine 0.5 L Glucose 148 H Calcium 9.5 Liver Function 05/15/21 Range/Units 06:42 Total Bilirubin 0.6 (0.15-1.2) mg/dL AST 14 (0-40) U/L ALT 17 (0-41) U/L Alkaline Phosphata se 66 (40-130) IU/L Albumin 4.2 (3.5-5.2) g/dL Vitals: Temperature 97.7 F 05/15/21 06:19 Temperature Source Temporal Artery S can 05/15/21 06:19 Pulse Rate 75 05/15/21 06:19 Respiratory Rate 18 05/15/21 06:19 Blood Pressure 133/88 05/15/21 06:19 Blood Pressure Yesika n 103 05/15/21 06:19 Pulse Oximetry 94 05/15/21 06:19 Oxygen Delivery Me thod 05/15/21 06:20 Exam: Pre-Anes Outpt Exam: alert, oriented x 3, clear to auscultation bilaterally and regular rate & rhythm Cardiac Studies: No Data to Display
--- NOTE | 2021-05-15 06:59 | P.HPUD_ITS ---
Surgery/Procedure H&P Update DATE OF PROCEDURE: May 15, 2021 DATE H&P PERFORMED: 04/16/21 H&P UPDATE INFORMATION: I have reviewed H&P completed within last 30 days, I have examined patient prior to procedure, No changes to prior documentation and H&P is in [facility] [place] indicated PREOP DIAGNOSIS: Degenerative osteoarthritis left knee PLANNED PROCEDURE: Operation Date: 05/15/21 07:00 Proposed Procedures p Total Knee [id number]/osteoarthritis left knee M17.10(Left) - Perla Frost MD Related Problem List Diagnoses (1) Primary osteoarthritis of left knee: (2) History of total right knee replacement:
[2021-05-15 07:13] LABS: Alanine Aminotransferase 17 U/L (0-41); Albumin Level 4.2 g/dL (3.5-5.2); Alkaline Phosphatase 66 IU/L (40-130); Anion Gap 13.1 (5-19); Aspartate Amino Transferase 14 U/L (0-40); Blood Urea Nitrogen 21 mg/dL (8-23); Calcium 9.5 mg/dL (8.5-10.5); Carbon Dioxide 28 mmol/L (22-29); Chloride 99 mmol/L (98-107); Glomerular Filtration Rate 165.9 mL/min (90-130); Glucose 148 mg/dL (65-115); Osmolality Calculated 288 mOsm/kg (285-295); Potassium 4.1 mmol/L (3.5-5.1); Sodium 136 mmol/L (136-145); Total Bilirubin 0.6 mg/dL (0.15-1.2); Total Protein 7.2 g/dL (6.6-8.7)
--- NOTE | 2021-05-15 08:06 | ANES.PROC ---
Anesthesia Procedures Procedure/Date: 05/15/21 Nerve Block ^: Nerve Block 1: Main Anesthesia: general anesthesia Time Out Performed: Yes Consent: requested by attending/covering physician, from patient, risks and benefits reviewed and patient agrees to proceed Nerve block location: adductor canal (L) Anesthesia monitors applied: pulse oximetry, EKG, BP cuff and oxygen Anesthetic Used: ropivicaine 0.5% (30) and with decadron (4 mg) Ultrasound used to: recognize landmarks and visualize and ID femerol nerve Nerve Stimulator Used?: No Interscalene/Femoral BLK: 4 stimuplex 21 g needle used for position and inplane approach, visualize local anesthetic spread and no vascular puncture identified Injection: neg aspiration of heme Patient Tolerated Procedure: well Complications: none
[2021-05-15] MEDS: vancomycin 1,000 MG SDV 1000 MG XX (08:29)
[2021-05-15] MEDS: ceFAZolin 1,000 mg SDV 2000 MG IRRIGATION (08:29)
--- NOTE | 2021-05-15 10:44 | XRR_ITS ---
PROCEDURE INFORMATION: Exam: XR Left Knee Exam date and time: 05/15/2021 10:48 AM Age: 66 years old Clinical indication: Device placement; Joint replacement hardware; Prior surgery; Surgery date: Post-operative (0-2 days); Additional info: Status post left total knee arthroplasty TECHNIQUE: Imaging protocol: XR Left knee. Views: 1 or 2 views. COMPARISON: CR XR knees AP WB w LT lmt ORTH 04/16/2021 2:57 PM FINDINGS: Bones/joints: The patient is status post left total knee arthroplasty with patellar resurfacing. No evidence of hardware related complication. No fracture or dislocation. Expected postoperative soft tissue changes noted. Surgical skin clips project over the anterior soft tissues. Soft tissues: See Bones/joints finding. XR/XR knee LT 1-2V [id number] IMPRESSION: Status post left total knee arthroplasty, without evidence of hardware related complication.
--- NOTE | 2021-05-15 11:10 | PM.OP ---
Operative Report Date of procedure: May 15, 2021 Pre-op diagnosis: Degenerative osteoarthritis left knee with valgus deformity Post-op diagnosis: Degenerative osteoarthritis left knee with valgus deformity Post-op findings: Valgus deformity with no flexion contracture and significant osteophyte formation Procedure done: Left total knee arthroplasty Implants: The [place] total knee system with a size 5 triathlon beaded posterior stabilized femur left, a triathlon titanium tibial component size 6 beaded, a triathlon X3 posterior stabilized tibial bearing insert size 6 X 11 mm and a beaded triathlon titanium asymmetric patella size 38 x 11 mm Specimens removed/disposition: Bone, disposed of Surgeon: Perla Frost Attendant Campground: [facility] superintendent operating Anesthesia: General (Intubated, ASA 3) Estimated blood loss (mL): 25 Tourniquet time (min): 120 (At 250 mmHg) IV fluids (mL): 1,300 Urine output (mL): 275 Complications: None Findings: Severe degenerative osteoarthritic changes with valgus, no flexion contracture. Condition: stable Disposition: PACU (Then to floor for observation overnight with pain management and initiation of therapy) Brief History: This 65-year-old man presented to the office with severe bilateral knee pain which was incapacitating.? He had severe valgus deformity of both knees with the right knee worse than the left.? He was unable to ambulate or perform reasonable activities of daily living.? None of these activities were able to be accomplished comfortably.? He was unresponsive to conservative measures. He underwent right total knee arthroplasty on July 18, 2020, and he has recovered nicely from this. Further discussion was undertaken with the patient, and he wished to proceed with left total knee arthroplasty risks and complications were discussed.? Consents were signed preoperatively, and questions were answered.? The patient wished to proceed. Procedure: The patient was brought to the operating theater, and after undergoing adequate general intubated anesthesia supplemented with regional block, ASA 3, the left lower extremity was prepped with Dura-Prep and draped in usual fashion following placement of a tourniquet high on the leg.?The leg was then draped free. Following prepping and draping, the leg was exsanguinated, and the tourniquet was elevated to 250 mmHg for a total tourniquet time of 120 minutes.? Prior to elevation of the tourniquet, but following exposure of the site of surgery, a surgical pause was performed. At the time of the surgical pause, we confirmed the site and side of surgery. Additionally, we confirmed the appropriate and timely administration of preoperative antibiotics, Ancef 2 g. and Transexemic acid 1 g. The availability of equipment was confirmed, and the patient's identity was verbalized as well. Following the surgical pause, an incision was made centering over the patella continuing proximally and distally as necessary to allow access to the knee joint. Dissection continued through skin and soft tissues using a scalpel. Hemostasis was obtained using electrocautery. The skin incision was followed by a median parapatellar arthrotomy. The leg was extended and the patella was everted. Following this, the leg was returned to flexed position.? The distal femur was exposed, and a drill hole was made in this for placement of the distal femoral jig. The distal femoral jig was set at 5? of valgus. The distal femoral cutting block was then placed in appropriate position, and an polo wing was used to confirm an appropriate amount of distal femur would be resected.? The distal femoral resection was accomplished with 8 mm of bone being resected distally.? After the distal femoral resection had been accomplished, the femur was measured and it measured a size 5.? Medial lateral dimension also measured a size 5.? A size 5 femoral cutting block was placed in position, and we were then able to accomplish the anterior, posterior and chamfer cuts. This jig was then removed and the notch guide was placed in position. With the notch guide in appropriate position, the notch was excised including resection of the anterior and posterior cruciate ligaments. This notch was to allow for the posterior stabilized femoral component. At this point, the femur was prepared and attention was directed to the proximal tibia. The posterior knee retractor was placed along with medial and lateral retractors. Further resection of the menisci was accomplished as we had better visualization. A complete meniscectomy was performed both medially and laterally with care being taken to protect the popliteus. Retractors were then placed so that the proximal tibia was well visualized. A drill hole was then made in the tibia for placement of the intramedullary guide. This guide was placed so that approximately 2 mm of bone would be resected from the deficient lateral tibial plateau. The intramedullary guide was utilized supplemented with an extramedullary guide to assure appropriate alignment for the proximal tibial resection. The proximal tibial jig was then evaluated, pinned in position, and the proximal tibial resection was accomplished without difficulty. The jig was removed, and the proximal tibia was measured. It measured a size 6. We then attempted a trial reduction with a size 6 by 9 mm followed 6 by 11 mm insert.? Osteophytes were also removed from the tibia prior to the trial reduction.? The femoral component was placed in position for the trial reduction, and the knee was placed through range of motion.? With this, there was appropriate patellar tracking.?? Extension was noted to be full as well.? With this we had excellent varus valgus alignment and full extension.? The knee was stable to varus valgus stress as well.? Therefore, this was the chosen component.? There was full extension and flexion without lift off and the rotation of the tibia was marked.? Alignment was checked from the hip to the ankle, and this was noted to be appropriate as well. Attention was then directed to the patella. The patella was measured with a caliper.? We resected sufficient patella to leave approximately 14 mm of patella remaining.? Measurements of the patella then indicated that a size asymmetric 38 mm x 11 mm was the appropriate patellar size. We then placed the jig to drill for the 3 pegs of the press-fit patella, and these drill holes were made without incident. A trial patella was then placed, and the knee was placed through range of motion. The patella was noted to track nicely without evidence of subluxation.? The femur was prepared for a press-fit femur by drilling 2 holes for the femoral pegs.? All trial components were subsequently removed. The tibial tray was then pinned into position, and we broached the tibia for the stem of the tibial component.? Subsequently, 4 drill holes were made for placement of the press-fit tibia.? This was accomplished without difficulty. Care was taken to assure appropriate rotation of the tibia as well as appropriate position on the proximal tibia. The tibial tray was completely seated on the proximal tibia. Following broaching, the tibial guide was removed, and all surfaces were copiously irrigated. The surfaces were then dried and a bone plug was placed into the distal femur.? Exparel was also injected at this point. The Tritanium tibia was impacted into position.? The beaded femur was then impacted into position in a cementless fashion. The tibial insert was placed. The patella was pressed into position with a patellar clamp.? The knee was irrigated with 20 mL of Betadine and 500 mL of normal saline, and this was allowed to remain in the knee for 3-4 minutes.? The knee was then copiously irrigated and suctioned dry. Attention was then directed to closure. Closure was accomplished with 0 Vicryl in the fascial tissues.? Following this, a 2-0 Monocryl was used in the subcutaneous tissues, and the skin was closed with skin charis. A sterile dressing was then placed consisting of Dermabond Prineo, Telfa, 4x4's, sterile soft roll, and an Sushil wrap. The patient was returned the Recovery Room in a satisfactory condition. X-rays were obtained there.? The patient will be discharged to the floor for postoperative rehabilitation and pain management. Related Problem List Diagnoses (1) Primary osteoarthritis of left knee:
[2021-05-15] MEDS: oxyCODONE 5 mg IR Tab/Cap PO ×3 (12:20→21:06)
--- NOTE | 2021-05-15 13:54 | ANE.PACU2 ---
Inpatient post-anesthesia follow up: Airway intact: Yes Vital signs: Temperature 97.5 F Pulse Rate 80 Respiratory Rate 18 Blood Pressure 176/96 Pulse Oximetry 92 Oxygen Delivery Me thod Room Air Oxygen Flow Rate 3 Fraction of Inspir ed Oxygen 3.5 Hydration adequate: Yes Nausea and vomiting: No Pain level: 2 Mental status: Baseline
[2021-05-15] MEDS: chlorhexidine gluconate 0.12% Btl 473 mL 30 ML MUCOUS MEM ×3 (16:20→21:07)
[2021-05-15] MEDS: sennosides-docusate Tablet 2 TAB PO (16:20)
[2021-05-15] MEDS: iron polysaccharide complex 150 mg Capsule PO (16:20)
[2021-05-15] MEDS: calcium carbonate 500 mg Chew Tablet 1000 MG PO (16:20)
[2021-05-15] MEDS: mupirocin oint 22 gm 1 APPLIC NASAL (16:20)
[2021-05-15] MEDS: CELEcoxib 200 mg Capsule PO (16:37)
[2021-05-16] VITALS (8 sets, daily range): BP systolic 119–145; BP diastolic 69–79; PULSE 83–89; RESP 16–20; TEMP 36.5; O2SAT 92–94
[2021-05-16 05:03] LABS: Hematocrit 36.5 % (42.0-52.0); Hemoglobin 12.6 g/dL (11.7-16.6); Mean Corpuscular HGB Conc 34.5 g/dL (30.0-36.0); Mean Corpuscular Volume 89.9 fl (80-94); Mean Platelet Volume 9.6 fL (7.4-10.4); Platelet Count 209 10^3/cmm (130-400); Red Blood Count 4.06 10^6/uL (4.1-5.3); White Blood Count 13.1 10^3/uL (4.0-10.0)
[2021-05-16 05:18] LABS: Anion Gap 12.1 (5-19); Blood Urea Nitrogen 17 mg/dL (8-23); Calcium 8.9 mg/dL (8.5-10.5); Carbon Dioxide 24 mmol/L (22-29); Chloride 101 mmol/L (98-107); Glomerular Filtration Rate 214.6 mL/min (90-130); Glucose 131 mg/dL (65-115); Osmolality Calculated 279 mOsm/kg (285-295); Potassium 4.1 mmol/L (3.5-5.1); Sodium 133 mmol/L (136-145)
[2021-05-16 05:29] LABS: Slide Review Slide Review Perform
[2021-05-16 05:30] LABS: Absolute Neutrophil 10.5 10^3/cmm (1.4-6.5); Absolute Segmented Neutrophil 8.9 10/cmm (1.6-7.1); Band Neutrophils Absolute 1.6 10^3/cmm (0.0-1.2); Eosinophils 0 %; Lymphocytes 13 %; Lymphocytes Absolute 2.1 10^3/cmm (1.2-3.4); Monocytes Absolute 0.5 10^3/cmm (0.1-0.6); Platelet Estimate Normal (Normal); Segmented Neutrophils 68 %; Total Cells Counted 100 (0-100)
[2021-05-16] MEDS: oxyCODONE 5 mg IR Tab/Cap PO ×3 (06:06→14:12)
[2021-05-16] MEDS: CELEcoxib 200 mg Capsule PO (06:07)
[2021-05-16] MEDS: acetaminophen 1,000 MG/100 ML PIGGYBACK 400 MG IV (06:07)
[2021-05-16] MEDS: multivitamin therapeutic Tablet 1 TAB PO (08:03)
[2021-05-16] MEDS: loratadine 10 mg Tablet PO (08:03)
[2021-05-16] MEDS: hydroCHLOROthiazide 25 mg Tablet 12.5 MG PO (08:03)
[2021-05-16] MEDS: cholecalciferol (vitamin D3) 1,000 unit Tablet 1000 UNIT PO (08:03)
[2021-05-16] MEDS: montelukast sodium 10 mg Tablet PO (08:03)
[2021-05-16] MEDS: chlorhexidine gluconate 0.12% Btl 473 mL 30 ML MUCOUS MEM ×2 (08:03→12:37)
[2021-05-16] MEDS: cholecalciferol (vitamin D3) 5,000 unit Tablet 10000 UNIT PO (08:04)
[2021-05-16] MEDS: sennosides-docusate Tablet 2 TAB PO (08:04)
[2021-05-16] MEDS: gabapentin 300 mg Capsule PO (08:04)
[2021-05-16] MEDS: aspirin 325 mg EC Tablet PO (08:04)
[2021-05-16] MEDS: PARoxetine 20 mg Tablet 10 MG PO (08:04)
[2021-05-16] MEDS: lisinopril 20 mg Tablet PO (08:04)
[2021-05-16] MEDS: calcium carbonate 500 mg Chew Tablet 1000 MG PO (08:04)
[2021-05-16] MEDS: iron polysaccharide complex 150 mg Capsule PO (08:04)
[2021-05-16] MEDS: mupirocin oint 22 gm 1 APPLIC NASAL (08:06)
--- NOTE | 2021-05-16 10:23 | PC.CHAP ---
Pastoral Care Encounter/Spiritual Assessment Type of Contact [] Declined underwater trapper visit [] Patient/Family/Request visit [] Outpatient visit [] Follow-up visit [] Physician referral [] Code/Alert [x] Routine visit [] Staff referral [] Actively dying [] Patient sleeping [] Family support [] [] Out of room [] Palliative care [] [x] Receiving care in room [] Pre-surgical visit [] Trauma [] Long length of stay [] ICU visit [] Other: Relational/Emotional Strength [] Patient feels connected with others/family/visitors/staff [] Distress [] Loneliness/isolation [] Abandonment Spirituality of Patient [] Person of Dina [] Attends [employer] of their Dina [] Believes in Prayer [] Reads Bible or Mormonism materials [] There are Spiritual issues to be addressed Canvas Shrinker Interventions [] Prayer [] Active listening [] Non-anxious presence [] Spiritual/emotional support [] Crisis/trauma care [] Spiritual counseling [] Bereavement support [] Provided bereavement packet [] Provided Bible/devotional materials [] Provided toy/stuffed animal, coloring book to patient or family member [] Provided Communion [] Anointing/[place] [] Salvation [] Completed spiritual assessment [] Other: Impact on Illness or Injury [] Angry [] Fearful [] Anxious [] Often cries [] Exhaustion [] Unable to work [] Unable to attend latter-day [] Unable to walk/stand [] Unable to read [] Unable to drive [] Unable to eat/drink [] Unable to sleep [] Unable to be with family [] Patient intubated [] Other: Summary Time spent with patient
[2021-05-16] MEDS: ibuprofen 800 mg tablet PO (11:12)
--- NOTE | 2021-05-16 13:45 | PM.DCS ---
Discharge Providers Date of Admission: 05/15/21 14:18 Date of Discharge: May 16, 2021 Attending Provider at Admission: Perla Frost MD Attending Provider at Discharge: Perla Frost MD Primary Care Provider: Marilynn Canales Diagnoses at Discharge Discharge Diagnosis (1) Primary osteoarthritis of left knee: Status: Acute (2) Status post total left knee replacement not using cement: Status: Acute Permanent problem details: Date of procedure: May 15, 2021 Diagnosis: Degenerative osteoarthritis left knee with valgus deformity Post-op findings: Valgus deformity with no flexion contracture and significant osteophyte formation Procedure done: Left total knee arthroplasty Implants: The [employer] total knee system with a size 5 triathlon beaded posterior stabilized femur left, a triathlon titanium tibial component size 6 beaded, a triathlon X3 posterior stabilized tibial bearing insert size 6 X 11 mm and a beaded triathlon titanium asymmetric patella size 38 x 11 mm Reason for Visit Reason for Visit: osteoarthritis left knee Brief History: This 65-year-old man presented to the office with severe bilateral knee pain which was incapacitating.? He had severe valgus deformity of both knees with the right knee worse than the left.? He was unable to ambulate or perform reasonable activities of daily living.? None of these activities were able to be accomplished comfortably.? He was unresponsive to conservative measures.? He underwent right total knee arthroplasty on July 18, 2020, and he has recovered nicely from this.? Further discussion was undertaken with the patient, and he wished to proceed with left total knee arthroplasty risks and complications were discussed.? Consents were signed preoperatively, and questions were answered.? The patient wished to proceed. Hospital Course Hospital Course Patient was brought to the hospital for same-day surgery in the form of left total knee arthroplasty. Preoperatively, the patient had significant valgus deformity without flexion contracture. He underwent an uneventful total knee arthroplasty and on the first postoperative day, he was ready for discharge to home. He had worked with physical therapy and was independent in his activities. There was no evidence of DVT. Wound was benign. There were no complications. The patient was discharged home with home health. Physical Exam Const: COMMON NORMALS: no acute distress, average body habitus, patient oriented x3 and alert GENERAL APPEARANCE: cooperative and comfortable ORIENTATION/CONSCIOUSNESS: Yes awake HENMT: COMMON NORMALS: normocephalic and atraumatic HEAD & SCALP: normocephalic and atraumatic Eye: GENERAL EYE: appearance normal, both eyes and all related structures Chest: COMMONS NORMALS: normal inspection of the chest Resp: COMMON NORMALS: normal respiratory effort EFFORT & INSPECTION: Yes able to speak in complete sentences and Yes symmetric chest movement Extremity: LEFT LOWER EXTREMITY: Yes knee joint (Dressing dry and intact.) Left knee: Yes inspection (Minimal ecchymosis.), Yes palpation (Minimal tenderness) and Yes neurovascular exam (No evidence of DVT, neurologically intact.) Neuro: COMMON NORMALS: patient oriented x3 SENSORIUM/ORIENTATION: Yes alert Psych: COMMON NORMALS: mental status grossly normal APPEARANCE: Yes grossly normal ATTITUDE: Yes calm and Yes engaged ATTENTION/CONCENTRATION: Yes attention grossly intact Skin: COMMON NORMALS: no rashes or lesions noted GENERAL SKIN EXAM: no rashes or lesions noted Urinary Catheter Management: King: Cath Placed During This Visit: yes, but has since been removed by the nurse Reason for Continuing Indwelling Catheter: Required Immobilization for Trauma or Surgery or Anesthesia Urinary Catheter Date of Insertion: 05/15/21 Urinary Catheter Time of Insertion: 07:40 Date Urinary Catheter Removed: 05/16/21 Time Urinary Catheter Discontinued: 06:12 Discharge Data Studies Completed and Pending Completed Studies During Hospitalization Category Date Time Status XR knee LT 1-2V [id number] Routine Exams 05/15/21 10:44 Completed Radiology Impressions Knee X-Ray 05/15/21 10:44 IMPRESSION: Status post left total knee arthroplasty, without evidence of hardware related complication. Laboratory Results WBC 13.1 10^3/uL (4.0-10.0) H 05/16/21 04:27 RBC 4.06 10^6/uL (4.1-5.3) L 05/16/21 04:27 Hgb 12.6 g/dL (11.7-16.6) 05/16/21 04:27 Hct 36.5 % (42.0-52.0) L 05/16/21 04:27 MCV 89.9 fl (80-94) 05/16/21 04:27 MCH 31.0 pg (28.0-34.0) 05/16/21 04:27 MCHC 34.5 g/dL (30.0-36.0) 05/16/21 04:27 RDW 12.0 % (12.1-15.1) L 05/16/21 04:27 Plt Count 209 10^3/cmm (130-400) 05/16/21 04:27 MPV 9.6 fL (7.4-10.4) 05/16/21 04:27 Neut % (Auto) 48.9 % 05/08/21 09:38 Lymph % (Auto) Not Reportable 05/16/21 04:27 [place] % (Auto) Not Reportable 05/16/21 04:27 Eos % (Auto) 4.4 % 05/08/21 09:38 Baso % (Auto) 1.5 % 05/08/21 09:38 Neut # (Auto) 3.64 10^3/uL (1.8-7.7) 05/08/21 09:38 Lymph # (Auto) Not Reportable 05/16/21 04:27 [place] # (Auto) Not Reportable 05/16/21 04:27 Eos # (Auto) 0.3 10^3/uL (0.0-0.8) 05/08/21 09:38 Baso # (Auto) 0.1 10^3/uL (0.0-0.1) 05/08/21 09:38 Nucleated RBC % (auto) 0 % 05/08/21 09:38 Total Counted 100 (0-100) 05/16/21 04:27 Atypical Lymphs % 3.0 % (0-5) 05/16/21 04:27 Absolute Neutrophils 10.5 10^3/cmm (1.4-6.5) H 05/16/21 04:27 Segmented Neutrophils 68 % 05/16/21 04:27 Abs Segm Neuts (Man) 8.9 10/cmm (1.6-7.1) H 05/16/21 04:27 Band Neutrophils 12.0 % 05/16/21 04:27 Abs Band Neuts (Man) 1.6 10^3/cmm (0.0-1.2) H 05/16/21 04:27 Absolute Lymphocytes 2.1 10^3/cmm (1.2-3.4) 05/16/21 04:27 Lymphocytes (Manual) 13 % 05/16/21 04:27 Monocytes (Manual) 4.0 % 05/16/21 04:27 Absolute Monocytes 0.5 10^3/cmm (0.1-0.6) 05/16/21 04:27 Eosinophils (Manual) 0 % 05/16/21 04:27 Absolute Eosinophils 0.0 10^3/cmm (0.0-0.7) 05/16/21 04:27 Basophils (Manual) 0.0 % 05/16/21 04:27 Absolute Basophils 0.0 10^3/cmm (0.0-0.2) 05/16/21 04:27 Nucleated RBCs # 0.0 /100WBC 05/08/21 09:38 Platelet Estimate Normal (Normal) 05/16/21 04:27 Sodium 133 mmol/L (136-145) L 05/16/21 04:27 Potassium 4.1 mmol/L (3.5-5.1) 05/16/21 04:27 Chloride 101 mmol/L (98-107) 05/16/21 04:27 Carbon Dioxide 24 mmol/L (22-29) 05/16/21 04:27 Anion Gap 12.1 (5-19) 05/16/21 04:27 BUN 17 mg/dL (8-23) 05/16/21 04:27 Creatinine 0.4 mg/dL (0.7-1.2) L 05/16/21 04:27 GFR Calculation 214.6 mL/min (90-130) H 05/16/21 04:27 Glucose 131 mg/dL (65-115) H 05/16/21 04:27 Calculated Osmolality 279 mOsm/kg (285-295) L 05/16/21 04:27 Calcium 8.9 mg/dL (8.5-10.5) 05/16/21 04:27 Total Bilirubin 0.6 mg/dL (0.15-1.2) 05/15/21 06:42 AST 14 U/L (0-40) 05/15/21 06:42 ALT 17 U/L (0-41) 05/15/21 06:42 Alkaline Phosphatase 66 IU/L (40-130) 05/15/21 06:42 Total Protein 7.2 g/dL (6.6-8.7) 05/15/21 06:42 Albumin 4.2 g/dL (3.5-5.2) 05/15/21 06:42 Globulin 3.0 g/dL (1.3-4.6) 05/15/21 06:42 Urine Color Yellow (Yellow) 05/08/21 08:38 Urine Appearance Clear (CLEAR) 05/08/21 08:38 Urine pH 7 (5-7) 05/08/21 08:38 Ur Specific [place] 1.010 (1.005-1.030) 05/08/21 08:38 Urine Protein Neg (Negative) 05/08/21 08:38 Urine Glucose (UA) Norm (Normal) 05/08/21 08:38 Urine Ketones Negative (Negative) 05/08/21 08:38 Urine Blood Neg (Negative) 05/08/21 08:38 Urine Nitrate Negative (Negative) 05/08/21 08:38 Urine Bilirubin Neg (Negative) 05/08/21 08:38 Urine Urobilinogen Norm mg/dL (Negative) 05/08/21 08:38 Ur Leukocyte Esterase Negative (Negative) 05/08/21 08:38 Vitals Last Vital Signs Temp 97.7 F 05/16/21 03:37 Pulse 83 05/16/21 11:28 Resp 18 05/16/21 11:28 BP 132/75 05/16/21 11:28 Pulse Ox 92 05/16/21 11:28 Discharge Plan Discharge Patient Disposition: Home Health Service Condition: Stable Prescriptions: New acetaminophen 500 mg Tablet 1,000 mg PO Q8H 15 Days Qty: 90 0RF aspirin 325 mg Tablet,Delayed Release (Dr/Ec) 325 mg PO DAILY 30 Days 0RF oxycodone 5 mg Tablet 5 mg PO Q4H PRN (Reason: Moderate Pain) 7 Days Qty: 30 0RF Continued cholecalciferol (vitamin D3) 10,000 unit capsule 10,000 unit PO DAILY 0RF gabapentin [Neurontin] 300 mg capsule 300 mg PO DAILY 0RF montelukast [Singulair] 10 mg tablet 10 mg PO DAILY 0RF guaifenesin 400 mg tablet 400 mg PO QID 0RF nitroglycerin [Nitrostat] 0.4 mg tablet, sublingual 0.4 mg SUBLINGUAL Q5M PRN (Reason: Chest Pain) 0RF albuterol sulfate [Proventil HFA] 90 mcg/actuation HFA aerosol inhaler 2 puff INHALATION Q6H PRN (Reason: Shortness Of Breath) 0RF ibuprofen [IBU] 800 mg tablet 800 mg PO Q8H 0RF tramadol 50 mg tablet 50 mg PO DAILY 0RF aspirin [Adult Low Dose Aspirin] 81 mg tablet,delayed release (DR/EC) 81 mg PO DAILY 0RF Hold Instructions: Resume on 08/16/20. loratadine [Allergy Relief (loratadine)] 10 mg tablet 10 mg PO DAILY 0RF paroxetine HCl 10 mg tablet 10 mg PO DAILY 0RF hydrochlorothiazide 12.5 mg capsule 12.5 mg PO DAILY 0RF lisinopril 20 mg tablet 20 mg PO DAILY 0RF celecoxib 200 mg Capsule 200 mg PO DAILY Qty: 30 0RF Discharge Orders: Discharge Order (Routine); Ordered 05/16/21 Ordered By: Perla Frost Referrals: [facility] [place] Home Care ([facility]) [Outside] Perla Frost MD [Physician] - 05/29/21 9:45 am (First visit will be with the nurse. You will see me with xray on 06/04/21 at 0845.) Discharge Diet: Advance as tolerated and Usual diet Discharge Activity: Increase activity as tolerated, Limit activity as instructed, Use walker/crutches as instructed and As per PT/OT instructions Patient Instructions: Aspirin (By mouth), Oxycodone, Rapid Release (By mouth), Knee Replacement (DC), Opioid Safety Activity Restrictions/Additional Instructions: Elevation to left lower extremity. Gait training, strengthening, and range of motion with physical therapy. You may shower, but leave clear dressing in place. Discharge Attestations Time Spent in Discharge Care*: greater than 30 min Specific Discharge Activities: educating patient, documenting/other paperwork and evaluating patient/reviewing data Quality Metrics Clinical Quality Measures [ No reported AMI, CVA or VTE this stay] Coding Level of Care Code Acute Chg FW DC note Diagnoses Primary osteoarthritis of left knee M17.12 Status post total left knee replacement not using cement Z96.652
[2021-05-16] MEDS: acetaminophen 500 mg Tablet 1000 MG PO (14:12)
== END 2021-05-16 15:15 | disposition home health service (06) ==
LOC: OPMS 14:19 → MEDSURG 21:51
PROVIDERS: Admitting Provider Specialist; PCP Internal Medicine; Visit Provider Specialist
PROC: (CPT 27447; principal; 2021-05-15 07:00)
DX: M17.12 Unilateral primary osteoarthritis, left knee (principal); M21.062 Valgus deformity, not elsewhere classified, left knee; F17.210 Nicotine dependence, cigarettes, uncomplicated; I25.2 Old myocardial infarction; I10 Essential (primary) hypertension
CPT/HCPCS: 27447; 36415; 51702; 64447; 73560; 76942; 80048; 80053; 85007; 85025; 97110; 97116; 97161; 97165; C1776; C9290; G0378; J0330; J0690; J1100; J2370; J2405; J2704; J2710; J2795; J3010; J3370; J3490; J7030

== ENCOUNTER → 2021-06-04 08:01 | Outpatient (BNVA) | payer MEDICARE, MEDICAID, SELFPAY | PROVIDERS: PCP Internal Medicine; Visit Provider Specialist | DX: Z96.651 Presence of right artificial knee joint (principal); E66.01 Morbid (severe) obesity due to excess calories; Z68.41 Body mass index [BMI] 40.0-44.9, adult | CPT/HCPCS: 73560; 73565 ==

== ENCOUNTER → 2021-09-03 07:52 | Outpatient (BNVA) | payer MEDICARE, MEDICAID, SELFPAY | PROVIDERS: PCP Internal Medicine; Visit Provider Nurse Practitioner Family | DX: Z96.652 Presence of left artificial knee joint (principal) | CPT/HCPCS: 73560; 73565; 99213; 99214 ==

== ENCOUNTER → 2022-07-16 10:43 | Outpatient (BNVA) | payer MEDICARE, MEDICAID, SELFPAY | PROVIDERS: PCP Internal Medicine; Visit Provider Nurse Practitioner Family | DX: Z96.653 Presence of artificial knee joint, bilateral (principal) | CPT/HCPCS: 73560; 73565; 99024; 99214 ==

== ENCOUNTER 2023-02-09 08:00 | Emergency (ER) | payer MEDICARE, MEDICAID, SELFPAY ==
[2023-02-09 08:09] VITALS: BP 112/57; PULSE 85; O2SAT 94; BMI 38.0
--- NOTE | 2023-02-09 08:10 | XRR_ITS ---
PROCEDURE INFORMATION: Exam: XR Right Hip Exam date and time: 02/09/2023 8:29 AM Age: 67 years old Clinical indication: Hip pain; Right hip TECHNIQUE: Imaging protocol: Radiologic exam of the right hip. Views: 1 view hip with pelvis when performed. COMPARISON: No relevant prior studies available. FINDINGS: Bones/joints: Mild articular surface narrowing and spurring. No fracture or dislocation. No lytic or sclerotic bone lesion. No acute osseous or joint abnormality. Soft tissues: Unremarkable. XR/XR hip RT 2-3V wo/w pel* [id number] IMPRESSION: Mild degenerative changes.
--- NOTE | 2023-02-09 08:11 | ED_ITS ---
HPI - General Adult General: Chief complaint: Extremity Problem,Nontraumatic Stated complaint: hip pain Time Seen by Provider: 02/09/23 08:05 Source: patient Mode of arrival: ambulatory Limitations: no limitations History of Present Illness: 67-year-old male states been having righ t hip pain over the last 2 days. States it was worse yesterday especially with movement around he states improved with rest he states he took a hydrocodone this morning his pain is currently a 1 out of 10. He states been able to ambulate denies any injuries denies any fevers. Denies any radiation of the pain. He states that he has had bilateral knee replacements. Associated symptoms: Deny chest pain, dyspnea, headache(s), nausea, rash or vomiting Review of Systems Const: Denies: fever(s), chills, body aches or change in appetite ENMT: Denies: throat pain or dental pain Card: Denies: chest pain Resp: Denies: dyspnea GI: Denies: abdominal pain, nausea, vomiting or diarrhea Musc: Reports: extremity pain; Denies: neck pain or back pain Skin/Breast: Denies: rash Neuro: Denies: headache(s) PFS ED PFSH: Medical History History of high blood pressure Enlarged heart Social History Smoking and tobacco/nicotine status: current every day tobacco/nicotine user cigarettes Packs smoked per day: 2.5 Alcohol intake: former Substance/Drug Use: never Physical Exam Const: COMMON NORMALS: no acute distress, patient oriented x3 and healthy ap pearing HENMT: COMMON NORMALS: normocephalic and atraumatic HEAD & SCALP: normocephalic and atraumatic Neck/C-Spine: COMMON NORMALS: full ROM and supple Chest: COMMONS NORMALS: normal inspection of the chest Resp: COMMON NORMALS: normal respiratory effort Cardio: COMMON NORMALS: regular rate, regular rhythm and No murmurs present (Cardio) RATE: regular rate RHYTHM: regular rhythm Extremity: COMMON NORMALS: normal to inspection and full ROM NARRATIVE EXTREMITY EXAM: Slight pain with range of motion right hip able ambulate without any difficulties Neuro: COMMON NORMALS: patient oriented x3, moves all extremities and no focal motor deficits Psych: COMMON NORMALS: mental status grossly normal, Normal thought process present and cooperative THOUGHT PROCESS: Normal thought process present Skin: COMMON NORMALS: no rashes or lesions noted and no wounds GENERAL SKIN EXAM: no rashes or lesions noted Course Vital Signs: Vital signs: Vital Signs Pulse Rate 85 02/09/23 08:09 Blood Pressure 112/57 02/09/23 08:09 Pulse Oximetry 94 02/09/23 08:09 Oxygen Delivery Me thod Room Air 02/09/23 08:09 MDM - General Adult Medical Decision Making Patient presents here with right hip pain x-ray shows no fracture he has no signs of septic joint he is to take ibuprofen along with his tramadol we will get him follow-up with orthopedics he is return if worsening. Medical Records I reviewed the patient's medical records. Lab Data I reviewed the patient's lab results. Radiology Impressions Hip/Pelvis X-Ray 02/09/23 08:10 IMPRESSION: Mild degenerative changes. All radiology interpretation(s) finalized by discharge Discharge Plan Discharge Patient Disposition: Home Clinical Impression: Hip pain, right Condition: Stable Prescriptions: No Action gabapentin [Neurontin] 300 mg capsule 300 mg PO BEDTIME montelukast [Singulair] 10 mg tablet 10 mg PO QAM albuterol sulfate [Proventil HFA] 90 mcg/actuation HFA aerosol inhaler 2 puff INHALATION Q6H PRN (Reason: Shortness Of Breath) ibuprofen [IBU] 800 mg tablet 800 mg PO BID tramadol 50 mg tablet 50 mg PO QAM loratadine [Allergy Relief (loratadine)] 10 mg tablet 10 mg PO QAM lisinopril 20 mg tablet 20 mg PO QAM Tylenol Ex Str Rapid Release 500 mg Tablet 1,500 mg PO Q6H PRN (Reason: Pain) Chest Congestion Relief 100 mg/5 mL liquid 300 mg PO Q8H PRN (Reason: Cough) aspirin 325 mg tablet,delayed release (DR/EC) 325 mg PO QAM paroxetine HCl 30 mg tablet 30 mg PO BEDTIME Nitrostat 0.4 mg Tablet, Sublingual 0.4 mg SUBLINGUAL Q5M PRN (Reason: Chest Pain) Rx Instructions: do not exceed 3 doses per episode hydrochlorothiazide 12.5 mg tablet 12.5 - 25 mg PO QAM Mucinex 600 mg Tablet Extended Release 12hr 600 mg PO QAM Discharge Orders: Discharge ED (Routine); Ordered 02/09/23 Ordered By: Mikayla Duggan Referrals: Perla Frost MD [Physician] - 1-3 days Marilynn Canales [Primary Care Provider] - Discharge Diet: Advance as tolerated Discharge Activity: Resume usual activity Patient Instructions: Hip Pain (ED) Coding Level of Care Code ED Conservation Technician for [place]
[2023-02-09] MEDS: dexamethasone 10 mg/mL INJ IM (08:42)
[2023-02-09] MEDS: ketorolac 30 mg/mL INJ IM (08:42)
--- NOTE | 2023-02-10 10:20 | DCPLANNER ---
Referral was sent to ortho on 02/10/23 at 1023. Clinic to contact patient
== END 2023-02-09 09:05 | disposition home or self-care (01) ==
PROVIDERS: Emergency Provider Emergency Medicine; PCP Internal Medicine
DX: M25.551 Pain in right hip (principal); Z79.82 Long term (current) use of aspirin; F17.210 Nicotine dependence, cigarettes, uncomplicated
CPT/HCPCS: 73502; 96372; 99284; J1100; J1885

== ENCOUNTER → 2023-02-28 08:01 | Outpatient (BNVA) | payer MEDICARE, MEDICAID, SELFPAY | PROVIDERS: PCP Internal Medicine; Referring Provider Emergency Medicine; Visit Provider Nurse Practitioner | DX: M16.11 Unilateral primary osteoarthritis, right hip; M54.41 Lumbago with sciatica, right side | CPT/HCPCS: 73502; 99214 ==

== ENCOUNTER → 2023-05-26 11:06 | Outpatient (BNVA) | payer MEDICARE, MEDICAID, SELFPAY | PROVIDERS: PCP Internal Medicine; Visit Provider Nurse Practitioner | DX: Z96.652 Presence of left artificial knee joint (principal); Z96.651 Presence of right artificial knee joint; M25.561 Pain in right knee; M25.562 Pain in left knee; G89.29 Other chronic pain | CPT/HCPCS: 73560; 73565; 99214 ==

== ENCOUNTER → 2023-10-23 14:38 | Outpatient (BNVA) | payer MEDICARE, MEDICAID, SELFPAY | PROVIDERS: PCP Internal Medicine; Referring Provider Internal Medicine; Visit Provider Internal Medicine Cardiovascular Disease | DX: R06.09 Other forms of dyspnea (principal); R94.31 Abnormal electrocardiogram [ECG] [EKG]; E66.01 Morbid (severe) obesity due to excess calories; Z68.41 Body mass index [BMI] 40.0-44.9, adult; R06.02 Shortness of breath; F17.200 Nicotine dependence, unspecified, uncomplicated; I10 Essential (primary) hypertension; Z98.61 Coronary angioplasty status | CPT/HCPCS: 99204 ==

== ENCOUNTER 2023-12-01 10:21 | Outpatient (CLI) | payer MEDICARE, MEDICAID, SELFPAY ==
[2023-12-01 10:59] VITALS: BMI 40.6
--- NOTE | 2023-12-01 10:59 | ECG_ITS ---
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 Interpretive Statements PROCEDURE: At the baseline, the EKG revealed normal sinus rhythm with a right bundle branch block pattern. The baseline heart was 73 bpm with a blood pressue of 111/67 mm of Hg Lexiscan was infused over a period of 20 seconds. A total of 0.4 milligrams of Lexiscan was infused. The stress phase was continued for a total of 5 minutes. Heart rate at the end of the stress phase was 83 bpm with a blood pressure 111/67 mm of Hg. The EKG at the peak infusion revealed no significant changes. Sestamibi was injected 20 seconds after the Lexiscan infusion. Heart rate at the end of the recovery phase was 81 bpm with a blood pressure of 126/67 mm of Hg. CONCLUSION: 1. No significant EKG changes with the LexiScan infusion 2. No LexiScan induced chest pain or cardiac arrhythmia 3. Normal blood pressure and heart rate response 4. Sestamibi/sestamibi perfusion scan pending; see separate report. Lung unchanged pre/post procedure; Intraprocedure shortess of breath; Symptoms resoled by discharge Electronically Signed On 12-07-2023 19:11:55 CDT by Desean Ca M.D. [id number]
--- NOTE | 2023-12-01 11:00 | NMCV_ITS ---
NM shiraz perf SPECT r/s* [id number] Matthew Cary Age: 68 Gender: M : 1955 Exam Date: 12/01/2023 11:23 Ordering Phys: Desean Ca MD ([email or web address]) Technologist: ZEINA Benitez Exam Location: [facility] Indications: CP STRESS TEST [facility] IMAGE PROTOCOL Rest/Stress 1 Day Radiopharmaceutical Dose (mCi) Administration Site Administered by Rest: Tc-99m 10.9 IV ZEINA Chacon Sestamibi Stress:Tc-99m 31.3 IV ZEINA Benitez Sestamielke Rest: 01-Dec-2023 60 Discovery 630 Stress: 01-Dec-2023 30 Discovery 630 0.4mg Lexiscan. Images obtained in supine and prone position. SPECT RESULTS Technical Quality: Good Raw Data Analysis: Normal Image Corrections: No attenuation or motion correction applied Summed Stress Score: 7 Summed Rest Score: 10 Summed Difference Score: 0 PERFUSION FINDINGS Small to moderate area of moderately decreased tracer uptake involving the mid inferolateral, mid inferior mid and apical inferior, no significant reversibility was noted in these regions. FUNCTIONAL RESULTS (calculated via Gated SPECT) Stress Image LV EF (%): 68 Stress EDV (mL):110 TID: 1 Stress ESV (mL):35 FUNCTIONAL FINDINGS: Small to moderate area of moderately decreased persistent tracer uptake involving the mid inferior, inferolateral, apical lateral and apical inferior regions suggesting myocardial scarring versus attenuation artifact. 2. Normal LV ejection fraction of 68%. 3. LV wall motion analysis revealing no gross wall motion abnormalities. 4. Normal LV volume No similar previous studies are available for comparison Low probability for coronary ischemia, based on the above findings IMPRESSIONS Dr Desean Ca MD FAC (Electronically Signed) Final Date: 01 December 2023 22:48 S
[2023-12-01] MEDS: regadenoson 0.4 Mg/5 ml Syringe IVP (12:10)
[2023-12-01 12:18] VITALS: BP 126/67; PULSE 87
== END 2023-12-01 10:22 | disposition home or self-care (01) ==
PROVIDERS: PCP Internal Medicine; Visit Provider Internal Medicine Cardiovascular Disease
DX: Z98.61 Coronary angioplasty status (principal)
CPT/HCPCS: 36415; 78452; 93017; 96374; A9500; J2785

== ENCOUNTER 2023-12-02 12:26 | Outpatient (CLI) | payer MEDICARE, MEDICAID, SELFPAY ==
--- NOTE | 2023-12-02 12:45 | USCV_ITS ---
Matthew Cary Age: 68 Gender: M : 1955 Exam Date: 12/02/2023 13:08 Ordering Phys: Desean Ca MD ([email or web address]) Technologist: RACHAEL Exam Location: [facility] [place] Indication: ABNORMAL EKG/ SOB BP: 116 / 63 HR: 66 Rhythm: Sinus Technical Quality: Adequate MEASUREMENTS (Male / Female) Normal Values 2D ECHO LV Diastolic Diameter PLAX 5.4 cm 4.2 - 5.9 / 3.9 - 5.3 cm IVS Diastolic Thickness 1.1 cm 0.6 - 1.0 / 0.6 - 0.9 cm IVS Systolic Thickness 2.2 cm LVPW Diastolic Thickness 2.0 cm 0.6 - 1.0 / 0.6 - 0.9 cm LVPW Systolic Thickness 2.4 cm LVOT Diameter 2.0 cm LV Ejection Fraction 2D Teich 64.1 % LV Ejection Fraction MOD 4C 68.6 % LV Ejection Fraction MOD 2C 66.7 % LV Ejection Fraction 2C AL 68.2 % LA Diameter 3.7 cm RA Systolic Volume 4C AL 35.4 ml RA Systolic Volume 4C MOD 33.8 ml LA Sys Volume AL 46.1 cm cubed LA Sys Volume Index AL 17.2 cm cubed/m squared Aorta at Sinotubular Diameter 2.0 cm IVC Diameter 1.9 cm M-MODE LA Ao Ratio MM 1.0 AV Cusp Separation MM 1.6 cm DOPPLER AV Peak Velocity 130.0 cm/s LVOT Peak Velocity 119.0 cm/s AV Area Cont Eq vti 3.1 cm squared AV Area Cont Eq pk 2.8 cm squared MV Peak Velocity 128.0 cm/s MV Area PHT 2.3 cm squared Mitral E to A Ratio 0.7 TR Peak Velocity 218.0 cm/s TR Peak Gradient 19.0 mmHg TR Mean Velocity 176.0 cm/s TR Mean Gradient 13.4 mmHg TR Velocity Time Integral 81.3 cm TV Peak E Velocity 54.0 cm/s Right Atrial Pressure 3.0 mmHg Pulmonary Artery Systolic Pressu 22.0 mmHg PV Peak Velocity 93.0 cm/s RV Ejection Time 0.4 s FINDINGS Left Ventricle Normal left ventricular size and systolic function, EF 68%.Grade I/IV diastolic dysfunction (abnormal relaxation filling pattern), normal to mildly elevated filling pressures. Right Ventricle The right ventricle is normal in size and function. Right Atrium The right atrium is normal in size. Left Atrium The left atrium is normal in size. Mitral Valve Mild mitral annular calcification. Aortic Valve No gross abnormalities noted Tricuspid Valve Trace tricuspid valve regurgitation. Pulmonic Valve Pulmonic valve not well visualized. Pericardium Normal pericardium without effusion. Aorta Normal ascending aorta dimension. IVC Inferior vena cava not visualized. CONCLUSIONS Normal left ventricular size and systolic function, EF 68%.Grade I/IV diastolic dysfunction (abnormal relaxation filling pattern), normal to mildly elevated filling pressures. Mild mitral annular calcification. Trace tricuspid valve regurgitation. Estimated pulmonary artery peak systolic pressure 22 mmHg There is no pericardial effusion. There are no intracardiac masses. No similar previous studies are available for comparison Dr Desean Ca MD FAC (Electronically Signed) Final Date: 05 December 2023 15:02 S
== END 2023-12-02 12:27 | disposition home or self-care (01) ==
LOC: RAD 12:26
PROVIDERS: PCP Internal Medicine; Visit Provider Internal Medicine Cardiovascular Disease
DX: I50.30 Unspecified diastolic (congestive) heart failure (principal); R06.09 Other forms of dyspnea
CPT/HCPCS: 93306

== ENCOUNTER → 2024-01-26 11:07 | Outpatient (BNVA) | payer MEDICARE, MEDICAID, SELFPAY | PROVIDERS: PCP Internal Medicine; Visit Provider Nurse Practitioner Family | DX: R06.02 Shortness of breath (principal); Z87.891 Personal history of nicotine dependence; I10 Essential (primary) hypertension; Z87.898 Personal history of other specified conditions | CPT/HCPCS: 99214 ==

== ENCOUNTER → 2024-09-02 10:47 | Outpatient (BNVA) | payer MEDICARE, MEDICAID, SELFPAY | PROVIDERS: PCP Internal Medicine; Visit Provider Internal Medicine Cardiovascular Disease | DX: R94.31 Abnormal electrocardiogram [ECG] [EKG] (principal); R06.02 Shortness of breath; I10 Essential (primary) hypertension; E66.01 Morbid (severe) obesity due to excess calories; Z68.41 Body mass index [BMI] 40.0-44.9, adult; Z79.82 Long term (current) use of aspirin; Z72.0 Tobacco use | CPT/HCPCS: 99214 ==

== ENCOUNTER 2024-09-20 11:05 | Inpatient (IN) | payer OTHER, MEDICAID, SELFPAY ==
[2024-09-20] VITALS (44 sets, daily range): BP systolic 83–118; BP diastolic 49–80; PULSE 35–103; RESP 14–26; TEMP 36.6; O2SAT 89–95; BMI 39.3
--- NOTE | 2024-09-20 11:08 | ECG_ITS ---
[email or web address] Date: 2024-09-20 Pat Name: Matthew Cary Department: Room: Gender: Male Continuous Improvement Lead: : 1955 Requested By: Mikayla Duggan Order Number: [id number] Ana Maria MD: Catrachito Irizarry M.D. Measurements Intervals [place] Rate: 95 P: 100 FL: 218 QRS: 25 QRSD: 141 T: -17 QT: 348 QTc: 438 Interpretive Statements SINUS RHYTHM WITH FIRST DEGREE AV BLOCK INTRAVENTRICULAR CONDUCTION DELAY [130+ ms QRS DURATION] Compared to ECG 05/09/2021 14:45:08 First degree AV block now present Intraventricular conduction delay now present Electronically Signed On 09-22-2024 14:07:20 CDT by Catrachito Irizarry M.D. [id number]
--- NOTE | 2024-09-20 11:16 | XR_ITS ---
WS: [id number] PORTABLE CHEST HISTORY: sob COMPARISON: 10/12/2016 Well-expanded lungs. Slight increased consolidation at the LEFT lung base partially obscured by the heart shadow. No pleural effusion or pneumothorax. Cardiac size: Normal. Mediastinum/Aorta: Ectatic thoracic aorta. No osseous abnormality seen. XR/XR chest 1V portable [id number] IMPRESSION: 1. Subsegmental atelectasis versus pneumonia LEFT lung base. 2. Mild atherosclerosis aorta.
--- NOTE | 2024-09-20 11:24 | W.ED.SOB ---
HPI - SOB/Dyspnea General: Chief Complaint: Shortness of Breath/Dyspnea Stated Complaint: body aches, sob, light headed, n/d Time Seen by Provider: 09/20/24 11:13 Source: patient Mode of arrival: ambulatory Limitations: no limitations History of Present Illness: HPI Narrative: 69-year-old male states that over the last 4 to 5 days he has been having generalized malaise he is also had a cough shortness of breath. He states he gets very short of breath with any activity he denies any chest pain is a longtime smoker no known history of COPD states he has had wheezing Associated symptoms: Reports abdominal pain; Deny chest pain, fever(s), nausea or vomiting Related Data Home Medications ?Medication ?Instructions ?Recorded ?Confirmed gabapentin 300 mg capsule 300 mg PO BEDTIME 05/05/19 09/20/24 (Neurontin) ibuprofen 800 mg tablet (IBU) 800 mg PO BID 05/05/19 09/20/24 lisinopril 20 mg tablet 20 mg PO QAM 05/05/19 09/20/24 loratadine 10 mg tablet (Allergy 10 mg PO QAM 05/05/19 09/20/24 Relief (loratadine)) montelukast 10 mg tablet 10 mg PO QAM 05/05/19 09/20/24 (Singulair) aspirin 325 mg tablet,delayed 325 mg PO QAM 02/09/23 09/20/24 release guaifenesin 600 mg tablet, 600 mg PO QAM 02/09/23 09/20/24 extended release 12 hr (Mucinex) hydrochlorothiazide 12.5 mg tablet 12.5 - 25 mg PO QAM 02/09/23 09/20/24 paroxetine HCl 30 mg tablet 30 mg PO BEDTIME 02/09/23 09/20/24 albuterol sulfate 90 mcg/actuation 2 inh inhalation QID PRN Shortness 09/20/24 09/20/24 aerosol inhaler Of Breath Or Wheezing ergocalciferol (vitamin D2) 1,250 See Rx Instructions .Route .COMPLEX 09/20/24 09/20/24 mcg (50,000 unit) capsule meloxicam 7.5 mg tablet 7.5 mg PO BID 09/20/24 09/20/24 tramadol 50 mg tablet 50 mg PO TID PRN Pain 09/20/24 09/20/24 Allergies Allergy/AdvReac Type Severity Reaction Status Date / Time No Known Allergies Allergy Verified 09/02/24 12:00 Review of Systems Const: Denies: fever(s), chills, body aches or change in appetite ENMT: Denies: throat pain or dental pain Card: Denies: chest pain Resp: Reports: dyspnea, non-productive cough and wheezing GI: Reports: abdominal pain; Denies: nausea, vomiting or diarrhea : Denies: dysuria Musc: Denies: neck pain or back pain Skin/Breast: Denies: rash Neuro: Denies: headache(s) PFS ED PFSH: Medical History Pain in both knees Low back pain with right-sided sciatica Chronic lower back pain Osteoarthritis of right hip History of high blood pressure Enlarged heart Social History Smoking and tobacco/nicotine status: current every day tobacco/nicotine user cigarettes Packs smoked per day: 2.5 Alcohol intake: former Substance/Drug Use: never Physical Exam Const: COMMON NORMALS: no acute distress, patient oriented x3 and healthy appearing HENMT: COMMON NORMALS: normocephalic and atraumatic HEAD & SCALP: normocephalic and atraumatic Eye: COMMON NORMALS: Equal, round and reactive pupils present PUPIL: Yes Equal, round and reactive pupils present Neck/C-Spine: COMMON NORMALS: full ROM and supple Chest: COMMONS NORMALS: normal inspection of the chest Resp: COMMON NORMALS: No retractions and No use of accessory muscles AUSCULTATION: wheezes Cardio: COMMON NORMALS: regular rate, regular rhythm and No murmurs present (Cardio) RATE: regular rate RHYTHM: regular rhythm GI: COMMON NORMALS: Normal to inspection, nondistended, normoactive bowel sounds present, Soft to palpation, non-tender and no masses PALPATION: Yes Soft to palpation Extremity: COMMON NORMALS: normal to inspection and full ROM Neuro: COMMON NORMALS: patient oriented x3, moves all extremities and no focal motor deficits Psych: COMMON NORMALS: mental status grossly normal, Normal thought process present and cooperative THOUGHT PROCESS: Normal thought process present Skin: COMMON NORMALS: no rashes or lesions noted and no wounds GENERAL SKIN EXAM: no rashes or lesions noted Course Vital Signs: Vital signs: Vital Signs Temperature 97.9 F 09/20/24 11:11 Pulse Rate 89 09/20/24 14:00 Respiratory Rate 18 09/20/24 14:00 Blood Pressure 104/54 09/20/24 14:00 Pulse Oximetry 92 09/20/24 14:00 Oxygen Delivery Me thod Nasal Cannula 09/20/24 13:30 Oxygen Flow Rate 2 09/20/24 13:30 MDM - SOB/Dyspnea Medical Decision Making Patient presents here with generalized malaise he is found to have pancreatitis along with acute kidney injury and pneumonia his blood pressure improved with fluids I did give him IV antibiotic spoke to hospitalist will admit to ICU at this time. Medical Records I reviewed the patient's medical records. Lab Data I reviewed the patient's lab results. 09/20/24 11:32 09/20/24 11:32 Labs/Radiology: Radiology Impressions Chest X-Ray 09/20/24 11:16 IMPRESSION: 1. Subsegmental atelectasis versus pneumonia LEFT lung base. 2. Mild atherosclerosis aorta. Chest/Abdomen/Pelvis CT 09/20/24 12:28 IMPRESSION: 1. A few scattered areas of pleural and parenchymal scarring. No focal pneumonia or pleural fluid. 2. Small area of groundglass opacity LEFT lower lobe along the fissure may be infectious, inflammatory, or fibrotic. 3. Cholecystectomy. 4. Sigmoid diverticulosis. No evidence of acute diverticulitis. 5. Bilateral renal cysts. Some lesions are indeterminate and are too small to definitively characterize and recommend follow-up with ultrasound. 6. Lobulated cystic lesion upper pole LEFT kidney measuring 4.4 x 4.5 cm. Recommend follow-up with ultrasound. 7. Slightly ectatic distal abdominal aorta measuring 2.6 cm. 8. No other acute findings. Laboratory Results WBC 12.10 10^3/uL (3.29-11.43) H 09/20/24 11:32 RBC 3.57 10^6/uL (3.85-5.65) L 09/20/24 11:32 Hgb 11.30 g/dL (11.27-16.99) 09/20/24 11:32 Hct 32.5 % (37-53) L 09/20/24 11:32 MCV 91.0 fl (82-101) 09/20/24 11:32 MCH 31.7 pg (27-33) 09/20/24 11:32 MCHC 34.8 g/dL (30-55) 09/20/24 11:32 RDW 14.5 % (12.1-15.1) 09/20/24 11:32 Plt Count 190 10^3/cmm (157-399) 09/20/24 11:32 MPV 10.4 fL (7.4-10.4) 09/20/24 11:32 Neut % (Auto) 84.5 % 09/20/24 11:32 Lymph % (Auto) 9.1 % 09/20/24 11:32 [place] % (Auto) 2.7 % 09/20/24 11:32 Eos % (Auto) 2.4 % 09/20/24 11:32 Baso % (Auto) 0.3 % 09/20/24 11:32 Neut # (Auto) 10.22 10^3/uL (1.8-7.7) H 09/20/24 11:32 Lymph # (Auto) 1.1 10^3/uL (0.8-4.8) 09/20/24 11:32 [place] # (Auto) 0.3 10^3/uL (0.2-0.9) 09/20/24 11:32 Eos # (Auto) 0.3 10^3/uL (0.0-0.8) 09/20/24 11:32 Baso # (Auto) 0.0 10^3/uL (0.0-0.1) 09/20/24 11:32 Nucleated RBC % (auto) 0 % 09/20/24 11:32 Nucleated RBCs # 0.0 /100WBC 09/20/24 11:32 Sodium 132 mmol/L (136-145) L 09/20/24 11:32 Potassium 3.1 mmol/L (3.5-5.1) L 09/20/24 11:32 Chloride 95 mmol/L (98-107) L 09/20/24 11:32 Carbon Dioxide 22 mmol/L (22-29) 09/20/24 11:32 Anion Gap 18.1 (5-19) 09/20/24 11:32 BUN 87 mg/dL (8-23) H* D 09/20/24 11:32 Creatinine 2.3 mg/dL (0.7-1.2) H 09/20/24 11:32 GFR Calculation 28.3 mL/min (90-130) L 09/20/24 11:32 Glucose 100 mg/dL (65-115) 09/20/24 11:32 Calculated Osmolality 301 mOsm/kg (285-295) H 09/20/24 11:32 Lactic Acid 1.8 mmol/L (0.5-2.2) 09/20/24 11:32 Calcium 8.2 mg/dL (8.5-10.5) L 09/20/24 11:32 Total Bilirubin 0.8 mg/dL (0.15-1.2) 09/20/24 11:32 AST 25 U/L (0-40) 09/20/24 11:32 ALT 27 U/L (0-41) 09/20/24 11:32 Alkaline Phosphatase 83 U/L (40-130) 09/20/24 11:32 NT-Pro-B Natriuret Pep 5649 pg/mL (0-125) H 09/20/24 11:32 Total Protein 6.4 g/dL (6.6-8.7) L 09/20/24 11:32 Albumin 2.7 g/dL (3.5-5.2) L 09/20/24 11:32 Globulin 3.7 g/dL (1.3-4.6) 09/20/24 11:32 Lipase 1481 U/L (13-60) H 09/20/24 11:32 Urine Color Dark yellow (Yellow) A 09/20/24 13:16 Urine Appearance Turbid (CLEAR) A 09/20/24 13:16 Urine pH 5.0 (5-7) 09/20/24 13:16 Ur Specific [place] 1.019 (1.005-1.030) 09/20/24 13:16 Urine Protein 1+ (Negative) A 09/20/24 13:16 Urine Glucose (UA) Negative (Normal) 09/20/24 13:16 Urine Ketones Trace (Negative) 09/20/24 13:16 Urine Blood Negative (Negative) 09/20/24 13:16 Urine Nitrate Negative (Negative) 09/20/24 13:16 Urine Bilirubin 1+ (Negative) H 09/20/24 13:16 Urine Urobilinogen 1.0 mg/dL (Negative) 09/20/24 13:16 Ur Leukocyte Esterase 2+ (Negative) A 09/20/24 13:16 Urine RBC 6-10 /hpf (0-2) 09/20/24 13:16 Urine WBC 21-50 /hpf (0-5) H 09/20/24 13:16 Ur Squamous Epith Cells 21-50 /hpf (0-5) H 09/20/24 13:16 Amorphous Sediment Not Reportable 09/20/24 13:16 Urine Bacteria None seen /hpf (NONE) 09/20/24 13:16 Hyaline Casts 38.88 /lpf 09/20/24 13:16 Urine Sperm 1+ /hpf 09/20/24 13:16 All radiology interpretation(s) finalized by discharge Critical Care Time Critical Care Time: Critical Care Time: Yes Total Critical Care Time: 45 Attestation: The high probability of a clinically significant, sudden or life threatening deterioration of the patient's gi system(s) required my full and direct attention, intervention and personal management. The critical care time is as shown. 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
[2024-09-20] MEDS: methylPREDNISolone sod succ 125 mg/2 mL INJ IV (11:31)
[2024-09-20 11:39] LABS: Hematocrit 32.5 % (37-53); Hemoglobin 11.30 g/dL (11.27-16.99); Mean Corpuscular HGB Conc 34.8 g/dL (30-55); Mean Corpuscular Hemoglobin 31.7 pg (27-33); Mean Corpuscular Volume 91.0 fl (82-101); Nucleated Red Blood Cells % 0 %; Platelet Count 190 10^3/cmm (157-399); Red Blood Count 3.57 10^6/uL (3.85-5.65); White Blood Count 12.10 10^3/uL (3.29-11.43)
[2024-09-20 11:57] LABS: Lactic Sepsis W/Reflex 1.8 mmol/L (0.5-2.2)
[2024-09-20] MEDS: piperacillin-tazobactam 3.375 GM in sodium chloride 0.9% (plus) 50 ML IV (12:03)
[2024-09-20 12:07] LABS: Alanine Aminotransferase 27 U/L (0-41); Albumin Level 2.7 g/dL (3.5-5.2); Alkaline Phosphatase 83 U/L (40-130); Anion Gap 18.1 (5-19); Aspartate Amino Transferase 25 U/L (0-40); Calcium 8.2 mg/dL (8.5-10.5); Carbon Dioxide 22 mmol/L (22-29); Chloride 95 mmol/L (98-107); Creatinine Clr Calc Pharmacy 41.9226; Globulin 3.7 g/dL (1.3-4.6); Glucose 100 mg/dL (65-115); NT Pro B Type Natriuretic Pept 5649 pg/mL (0-125); Osmolality Calculated 301 mOsm/kg (285-295); Potassium 3.1 mmol/L (3.5-5.1); Sodium 132 mmol/L (136-145); Total Protein 6.4 g/dL (6.6-8.7)
[2024-09-20 12:26] LABS: Blood Urea Nitrogen 87 mg/dL (8-23); Lipase 1481 U/L (13-60)
--- NOTE | 2024-09-20 12:28 | CT_ITS ---
WS: [id number] CT CHEST, ABDOMEN, AND PELVIS TECHNIQUE: Noncontrast CT of the chest, abdomen, and pelvis with coronal and sagittal reformatted images. CLINICAL INFORMATION: sob/abd pain COMPARISON: None. DLP: 1411.[address] scans at [facility] use at least one of these dose optimization techniques: automated exposure control; mA and/or kV adjustment per patient size (includes targeted exams where dose is matched to clinical indication); or iterative reconstruction. CT CHEST: Aortic calcification. Normal caliber thoracic aorta. Coronary calcification. Small esophageal hiatal hernia. Numerous normal sized mediastinal and parabronchial lymph nodes. These are similar to 2017 and likely reactive. No axillary lymphadenopathy. Lungs are well aerated. Minimal dependent atelectasis in the lung bases. Parenchymal scarring in the anterior segment RIGHT upper lobe along the fissure. Pleural parenchymal scarring along the lingula. Small area of groundglass infiltrate LEFT lower lobe along the fissure may be infectious inflammatory or fibrotic. No focal pneumonia. Moderate thoracic kyphosis with chronic anterior wedging and anterior hypertrophic changes. CT ABDOMEN AND PELVIS: Normal noncontrast liver. Cholecystectomy clips. Normal noncontrast spleen. Small esophageal hiatal hernia. Noncontrast pancreas is normal. Adrenal glands are normal. Aortic calcification. No hydronephrosis in either kidney. Sigmoid diverticulosis. No evidence of acute diverticulitis. Tiny fat-containing umbilical hernia. Bilateral renal cysts. Slightly ectatic distal abdominal aorta measuring 2.6 cm. Advanced spondylitic changes lumbar spine. Large lobulated lesion upper pole LEFT kidney appears predominantly cystic recommend follow-up with ultrasound. This measures approximately 4.4 x 4.5 cm. Additional smaller exophytic lesions RIGHT and LEFT kidney not definitely cystic or too small to characterize. Exophytic lesion mid RIGHT kidney measuring 2.4 cm not definitely cystic. Prostate measures 4.5 cm. Mild bladder wall thickening. CT/[place] [id number] IMPRESSION: 1. A few scattered areas of pleural and parenchymal scarring. No focal pneumon ia or pleural fluid. 2. Small area of groundglass opacity LEFT lower lobe along the fissure may be infectious, inflammatory, or fibrotic. 3. Cholecystectomy. 4. Sigmoid diverticulosis. No evidence of acute diverticulitis. 5. Bilateral renal cysts. Some lesions are indeterminate and are too small to definitively characterize and recommend follow-up with ultrasound. 6. Lobulated cystic lesion upper pole LEFT kidney measuring 4.4 x 4.5 cm. Fito mmend follow-up with ultrasound. 7. Slightly ectatic distal abdominal aorta measuring 2.6 cm. 8. No other acute findings.
[2024-09-20 13:42] LABS: Glucose Urine UA Negative (Normal); Nitrate Urine Negative (Negative); Specific Gravity, Urine 1.019 (1.005-1.030)
[2024-09-20 13:47] LABS: Add Urine Microscopic? YES
[2024-09-20 14:21] LABS: UA Slide Review UA Slide Review Perf
--- NOTE | 2024-09-20 17:20 | PM.HP ---
Providers/Chief Complaint Admitting Physician: Marlon Garza MD Primary Care Provider: Marilynn Canales Chief Complaint: body aches, sob, light headed, n/d History of Present Illness Matthew Cary is a 69 year old male presenting with about a 2-4 day history of generalized malaise, fever/chills associated with nausea and vomiting. He has had sick contacts recently. PMHx is significant for Asthma, ongoing smoking. He presented to ER for nonresolution of symptoms with home treatment and noticed to have hypotension in the ER. Normally he is on anti-hypertensive medications. CXR/CT is significant for possible PNA, admitted for further treatment. Review of Systems Const: Reports: fever(s), chills, body aches and malaise Eyes: Denies: change in vision ENMT: Denies: throat pain Card: Denies: chest pain Resp: Reports: dyspnea; Denies: chest congestion GI: Reports: nausea and vomiting; Denies: abdominal pain : Denies: urinary frequency Musc: Denies: neck pain or back pain Skin/Breast: Denies: rash, pruritus or erythema Neuro: Reports: headache(s) Psych: Denies: anxiety or depression Medications/Allergies Home Medications ?Medication ?Instructions ?Recorded ?Confirmed ?Last Taken ?Type gabapentin 300 mg capsule 300 mg PO BEDTIME 05/05/19 09/20/24 09/19/24 19:00 History (Neurontin) ibuprofen 800 mg tablet (IBU) 800 mg PO BID 05/05/19 09/20/24 09/19/24 History lisinopril 20 mg tablet 20 mg PO QAM 05/05/19 09/20/24 02/09/23 History loratadine 10 mg tablet (Allergy 10 mg PO QAM 05/05/19 09/20/24 09/20/24 History Relief (loratadine)) montelukast 10 mg tablet 10 mg PO QAM 05/05/19 09/20/24 09/20/24 08:00 History (Singulair) aspirin 325 mg tablet,delayed 325 mg PO QAM 02/09/23 09/20/24 09/20/24 History release guaifenesin 600 mg tablet, 600 mg PO QAM 02/09/23 09/20/24 02/09/23 History extended release 12 hr (Mucinex) hydrochlorothiazide 12.5 mg tablet 12.5 - 25 mg PO QAM 02/09/23 09/20/24 09/20/24 History paroxetine HCl 30 mg tablet 30 mg PO BEDTIME 02/09/23 09/20/24 09/19/24 20:00 History albuterol sulfate 90 mcg/actuation 2 inh inhalation QID PRN Shortness 09/20/24 09/20/24 Unknown History aerosol inhaler Of Breath Or Wheezing ergocalciferol (vitamin D2) 1,250 See Rx Instructions .Route .COMPLEX 09/20/24 09/20/24 09/19/24 History mcg (50,000 unit) capsule meloxicam 7.5 mg tablet 7.5 mg PO BID 09/20/24 09/20/24 09/20/24 History tramadol 50 mg tablet 50 mg PO TID PRN Pain 09/20/24 09/20/24 09/20/24 07:00 History Allergies Allergy/AdvReac Type Severity Reaction Status Date / Time No Known Allergies Allergy Verified 09/02/24 12:00 PFSH Acute PFSH: Medical History (Updated 09/20/24 @ 17:29 by Marlon Garza MD) Depression Asthma History of high blood pressure Enlarged heart Surgical History (Updated 09/20/24 @ 17:29 by Marlon Garza MD) History of bilateral knee arthroplasty Family History (Updated 09/20/24 @ 17:30 by Marlon Garza MD) Other Heart disease Social History Smoking and tobacco/nicotine status: current every day tobacco/nicotine user cigarettes Packs smoked per day: 2.5 Alcohol intake: former Substance/Drug Use: never Vitals/I&O/Wt Last Vital Signs Temp 97.9 F 09/20/24 11:11 Pulse 86 09/20/24 16:43 Resp 23 H 09/20/24 15:30 BP 93/51 09/20/24 16:43 Pulse Ox 95 09/20/24 16:43 O2 Del Method Nasal Cannula 09/20/24 13:30 O2 Flow Rate 2 09/20/24 13:30 09/20/24 09/20/24 09/20/24 06:59 14:59 22:59 Intake Total 2800 / 2800 Output Total 325 / 325 Balance 2800 / 2800 -325 / 2475 Weight last 48 hrs Weight 133 kg Weight 131.542 kg Physical Exam Const: COMMON NORMALS: patient oriented x3 HENMT: COMMON NORMALS: normocephalic and atraumatic Eye: COMMON NORMALS: Equal, round and reactive pupils present Neck/C-Spine: COMMON NORMALS: full ROM, no lymphadenopathy and supple Resp: COMMON NORMALS: normal respiratory effort (No wheezing, decreased breath sounds in bases.) Cardio: COMMON NORMALS: regular rate and regular rhythm; negative for No gallops present (Cardio), negative for No murmurs present (Cardio) and negative for No rub (Cardio) GI: COMMON NORMALS: Soft to palpation, non-tender and no masses Extremity: GENERAL: Yes edema (mild BL LE) Neuro: COMMON NORMALS: patient oriented x3, CN's II-XII intact bilaterally, moves all extremities, no focal motor deficits and no sensory deficits noted Psych: COMMON NORMALS: mental status grossly normal and Normal thought process present Skin: COMMON NORMALS: no rashes or lesions noted, no wounds and turgor normal Data 09/20/24 11:32 09/20/24 11:32 Micro: Microbiology 09/20/24 11:49 Blood Culture - Preliminary Blood SPECIMEN COLLECTED A&P Assessment and plan 1. Smoking addiction: 69 year old male presenting with Asthma exacerbation, hypotensive on admission Asthma exacerbation Possible early pneumonia - CXR with left lung base atelectasis - CT demonstrates scattered pleural scaring, no focal pna or fluids, GG opacity on left. - patient does not use O2 at home, on 2L here, wean as able - given 125 mg IV methylprednisolone bolus in ER, no active wheezing, will monitor off steroids - cont. home inhalers or eq. - duonebs for respiratory distress PRN - Vanc/zosyn given in ER, can cont. on rocephin while inpatient - cont. home mucinex - cont. loratadine, montelukast Hypotension in setting of essential HTN - hold anti-hypertensives with hypotension on admission - IV fluids - monitor off pressors. MANAN - CKD stage II at baseline - hold nephrotoxins. - gentle hydration at 75 ml/hr Hypokalemia - given 40 meq - monitor Headache - potentially 2/2 MANAN - given fluids in ER - can continue home ibuprofen - hold mobic - cont. home tramadol Peripheral neuropathy - cont. neurontin Depression - cont. home paroxetine PPx: lovenox Diet: regular Disposition - likely able to downgrade out of ICU in AM if hypotension improves - D/C planning with respiratory improvement. PDMP PDMP Reviewed: Not Reviewed Attestations Medical Necessity Statement*: hypotension, Asthma exacerbation Coding Level of Care Code Acute Code for Chg Fwd Diagnoses Smoking addiction F17.200
[2024-09-20] MEDS: cefTRIAXone 1,000 mg SDV 1000 MG IVP (18:01)
[2024-09-21] VITALS (54 sets, daily range): BP systolic 96–136; BP diastolic 50–82; PULSE 79–93; RESP 15–28; TEMP 36.6–37.1; O2SAT 89–96
[2024-09-21 02:53] LABS: Hematocrit 32.3 % (37-53); Hemoglobin 11.10 g/dL (11.27-16.99); Mean Corpuscular HGB Conc 34.4 g/dL (30-55); Mean Corpuscular Hemoglobin 32.2 pg (27-33); Mean Corpuscular Volume 93.6 fl (82-101); Nucleated Red Blood Cells % 0 %; Platelet Count 261 10^3/cmm (157-399); Red Blood Count 3.45 10^6/uL (3.85-5.65); White Blood Count 12.97 10^3/uL (3.29-11.43)
[2024-09-21 04:50] LABS: Anion Gap 17.5 (5-19); Blood Urea Nitrogen 71 mg/dL (8-23); Calcium 8.1 mg/dL (8.5-10.5); Carbon Dioxide 21 mmol/L (22-29); Chloride 100 mmol/L (98-107); Creatinine Clr Calc Pharmacy 74.6068; Glucose 174 mg/dL (65-115); Osmolality Calculated 305 mOsm/kg (285-295); Potassium 3.5 mmol/L (3.5-5.1); Sodium 135 mmol/L (136-145)
--- NOTE | 2024-09-21 11:34 | P.PN_ITS ---
Subjective 2 Subjective: Respiratory status improved Vitals/I&O/Wt Last Vital Signs Temp 98.6 F 09/21/24 08:00 Pulse 83 09/21/24 11:00 Resp 15 09/21/24 11:00 BP 122/67 09/21/24 11:00 Pulse Ox 92 09/21/24 11:00 O2 Del Method Nasal Cannula 09/21/24 10:28 O2 Flow Rate 2 09/21/24 10:28 09/20/24 09/21/24 09/21/24 22:59 06:59 14:59 Intake Total 1350 / 1350 Output Total 325 / 325 Balance -325 / 2475 1350 / 1350 Weight last 48 hrs Weight 131.5 kg Weight 133 kg Weight 131.542 kg Physical Exam 2 Const: COMMON NORMALS: patient oriented x3 HENMT: COMMON NORMALS: normocephalic and atraumatic HEAD & SCALP: n ormocephalic and atraumatic Eye: COMMON NORMALS: Equal, round and reactive pupils present PUPIL: Yes Equal, round and reactive pupils present Neck/C-Spine: COMMON NORMALS: full ROM, no lymphadenopathy and supple Resp: COMMON NORMALS: normal respiratory effort (No wheezing, decreased breath sounds in bases.) Cardio: COMMON NORMALS: regular rate and regular rhythm; negative for No gallops present (Cardio), negative for No murmurs present (Cardio) and negative for No rub (Cardio) RATE: regular rate RHYTHM: r egular rhythm GI: COMMON NORMALS: Soft to palpation, non-tender and no masses PALPATION: Yes Soft to palpation Extremity: GENERAL: Yes edema (mild BL LE) Neuro: COMMON NORMALS: patient oriented x3, CN's II-XII intact bilaterally, moves all extremities, no focal motor deficits and no sensory deficits noted Psych: COMMON NORMALS: mental status grossly normal and Normal thought process present THOUGHT PROCESS: Normal thought process present Skin: COMMON NORMALS: no rashes or lesions noted, no wounds and turgor normal GENERAL SKIN EXAM: no rashes or lesions noted and turgor normal Data 09/21/24 02:35 09/21/24 02:35 Micro: Microbiology 09/20/24 10:45 Blood Culture - Preliminary Blood SPECIMEN COLLECTED 09/20/24 11:49 Blood Culture - Preliminary Blood SPECIMEN COLLECTED A&P Assessment and plan 1. Asthma exacerbation: 2. Acute kidney injury: 3. Pneumonia: 4. Benign essential HTN: 5. Smoking addiction: Plan: 1. Smoking addiction: 69 year old male presenting with Asthma exacerbation, hypotensive on admission Asthma exacerbation Possible early pneumonia Acute hypoxemic respiratory failure. - CXR with left lung base atelectasis - CT demonstrates scattered pleural scaring, no focal pna or fluids, GG opacity on left. - patient does not use O2 at home, remains on 2L here, wean as able - if unable to wean, will need ex ox prior to D/C - given 125 mg IV methylprednisolone bolus in ER, no active wheezing, will monitor off steroids - cont. home inhalers or eq. - duonebs for respiratory distress PRN - Vanc/zosyn given in ER, can cont. on rocephin while inpatient - cont. home mucinex - cont. loratadine, montelukast Hypotension in setting of essential HTN - hold anti-hypertensives with hypotension on admission - IV fluids - monitor off pressors. - now resolved MANAN with severe azotemia - CKD stage II at baseline - hold nephrotoxins. - gentle hydration at 75 ml/hr - improving, BUN now 71, cr 1.3 Hypokalemia - given 40 meq - monitor Headache - potentially 2/2 MANAN - given fluids in ER - can continue home ibuprofen - hold mobic - cont. home tramadol Peripheral neuropathy - cont. neurontin Depression - cont. home paroxetine PPx: lovenox Diet: regular Disposition - downgrade out of ICU today - D/C planning with respiratory improvement. If unable to wean from O2, will need ex/ox prior to D/C PDMP PDMP Reviewed: Not Reviewed Attestations 2 Medical Necessity Statement*: Ongoing hypoxemia at elevated O2 requirements from baseline. Time Spent in Patient Care: 16 - 35 minutes Coding Level of Care Code Acute Code for g Fwd Diagnoses Asthma exacerbation J45.901 Acute kidney injury N17.9 Pneumonia J18.9 Benign essential HTN I10 Smoking addiction F17.200
[2024-09-21] MEDS: cefTRIAXone 1,000 mg SDV 1000 MG IVP (17:11)
[2024-09-22 04:50] VITALS: BP 126/74; PULSE 81; RESP 18; TEMP 36.5; O2SAT 94
[2024-09-22 05:18] LABS: Hematocrit 32.7 % (37-53); Hemoglobin 10.80 g/dL (11.27-16.99); Mean Corpuscular HGB Conc 33.0 g/dL (30-55); Mean Corpuscular Hemoglobin 31.3 pg (27-33); Mean Corpuscular Volume 94.8 fl (82-101); Nucleated Red Blood Cells % 0 %; Platelet Count 335 10^3/cmm (157-399); Red Blood Count 3.45 10^6/uL (3.85-5.65); White Blood Count 9.74 10^3/uL (3.29-11.43)
[2024-09-22 05:48] LABS: Anion Gap 14.8 (5-19); Blood Urea Nitrogen 42 mg/dL (8-23); Calcium 8.3 mg/dL (8.5-10.5); Carbon Dioxide 26 mmol/L (22-29); Chloride 107 mmol/L (98-107); Creatinine Clr Calc Pharmacy 121.3431; Glucose 114 mg/dL (65-115); Osmolality Calculated 307 mOsm/kg (285-295); Potassium 4.8 mmol/L (3.5-5.1); Sodium 143 mmol/L (136-145)
[2024-09-22 06:54] LABS: Slide Review Slide Review Perform
[2024-09-22 07:14] VITALS: BP 128/71; PULSE 82; RESP 17; TEMP 36.6; O2SAT 94
[2024-09-22 08:29] VITALS: PULSE 81; RESP 18; O2SAT 91
[2024-09-22 08:52] VITALS: O2SAT 85; O2SAT 90; O2SAT 91
--- NOTE | 2024-09-22 10:12 | P.DS_ITS ---
Discharge Providers Date of Admission: 09/20/24 13:20 Date of Discharge: September 22, 2024 Attending Provider at Admission: Marlon Garza MD Attending Provider at Discharge: Marlon Garza MD Primary Care Provider: Marilynn Herbertlisa Diagnoses at Discharge Discharge Diagnosis 1. Asthma exacerbation: 2. Acute kidney injury: 3. Pneumonia: 4. Benign essential HTN: 5. Smoking addiction: Reason for Visit Reason for Visit: body aches, sob, light headed, n/d Brief History: 69 year old male presenting with Asthma exacerbation, hypotensive on admission Hospital Course Hospital Course Asthma exacerbation Possible early pneumonia Acute hypoxemic respiratory failure. - CXR with left lung base atelectasis - CT demonstrates scattered pleural scaring, no focal pna or fluids, GG opacity on left. - patient has not used O2 at home, remains on 2L here - exercise oximetry done and he is requiring 3L O2, ordered for home per respiratory. - given 125 mg IV methylprednisolone bolus in ER, no active wheezing, will monitor off steroids - cont. home inhalers or eq. - duonebs for respiratory distress PRN - Vanc/zosyn given in ER, can cont. on rocephin while inpatient, finish on oral eq after D/C - cont. home mucinex - cont. loratadine, montelukast - if not previously done, he would benefit from PFTs as outpatient once recovered in about 4-6 weeks - pulmonary follow up as OP. Hypotension in setting of essential HTN - hold anti-hypertensives with hypotension on admission - IV fluids - monitor off pressors. - now resolved MANAN with severe azotemia - CKD stage II at baseline - hold nephrotoxins. - gentle hydration at 75 ml/hr - improving, BUN now 42, cr 0.7 Hypokalemia - resolved Headache - potentially 2/2 MANAN - given fluids in ER - can continue home ibuprofen - hold mobic - cont. home tramadol Peripheral neuropathy - cont. neurontin Depression - cont. home paroxetine PPx: lovenox Diet: regular Disposition - D/C planning for today, qualifies for home O2, ordered for D/C. - consider outpatient PFTs once improved if not previously done (in 4-6 weeks) - follow up with pulmonary as OP. Physical Exam Const: COMMON NORMALS: patient oriented x3 HENMT: COMMON NORMALS: normocephalic and atraumatic HEAD & SCALP: normocephalic and atraumatic Eye: COMMON NORMALS: Equal, round and reactive pupils present PUPIL: Yes Equal, round and reactive pupils present Neck/C-Spine: COMMON NORMALS: full ROM, no lymphadenopathy and supple Resp: COMMON NORMALS: normal respiratory effort (No wheezing, decreased breath sounds in bases.) Cardio: COMMON NORMALS: regular rate and regular rhythm; negative for No gallops present (Cardio), negative for No murmurs present (Cardio) and negative for No rub (Cardio) RATE: regular rate RHYTHM: regular rhythm GI: COMMON NORMALS: Soft to palpation, non-tender and no masses PALPATION: Yes Soft to palpation Extremity: GENERAL: Yes edema (mild BL LE) Neuro: COMMON NORMALS: patient oriented x3, CN's II-XII intact bilaterally, moves all extremities, no focal motor deficits and no sensory deficits noted Psych: COMMON NORMALS: mental status grossly normal and Normal thought process present THOUGHT PROCESS: Normal thought process present Skin: COMMON NORMALS: no rashes or lesions noted, no wounds and turgor normal GENERAL SKIN EXAM: no rashes or lesions noted and turgor normal Discharge Data Studies Completed and Pending Completed Studies During Hospitalization Category Date Time Status CT chest abdomen pelvis [[place] [id number] Cat Scan 09/20/24 12:28 Completed ] Stat XR chest 1V portable [id number] Stat Exams 09/20/24 11:16 Completed Pending at discharge Category Date Time Status Blood Culture Stat Lab 09/20/24 10:45 Results Radiology Impressions Chest X-Ray 09/20/24 11:16 IMPRESSION: 1. Subsegmental atelectasis versus pneumonia LEFT lung base. 2. Mild atherosclerosis aorta. Chest/Abdomen/Pelvis CT 09/20/24 12:28 IMPRESSION: 1. A few scattered areas of pleural and parenchymal scarring. No focal pneumonia or pleural fluid. 2. Small area of groundglass opacity LEFT lower lobe along the fissure may be infectious, inflammatory, or fibrotic. 3. Cholecystectomy. 4. Sigmoid diverticulosis. No evidence of acute diverticulitis. 5. Bilateral renal cysts. Some lesions are indeterminate and are too small to definitively characterize and recommend follow-up with ultrasound. 6. Lobulated cystic lesion upper pole LEFT kidney measuring 4.4 x 4.5 cm. Recommend follow-up with ultrasound. 7. Slightly ectatic distal abdominal aorta measuring 2.6 cm. 8. No other acute findings. Laboratory Results WBC 9.74 10^3/uL (3.29-11.43) 09/22/24 04:41 RBC 3.45 10^6/uL (3.85-5.65) L 09/22/24 04:41 Hgb 10.80 g/dL (11.27-16.99) L 09/22/24 04:41 Hct 32.7 % (37-53) L 09/22/24 04:41 MCV 94.8 fl (82-101) 09/22/24 04:41 MCH 31.3 pg (27-33) 09/22/24 04:41 MCHC 33.0 g/dL (30-55) 09/22/24 04:41 RDW 14.8 % (12.1-15.1) 09/22/24 04:41 Plt Count 335 10^3/cmm (157-399) 09/22/24 04:41 MPV 9.5 fL (7.4-10.4) 09/22/24 04:41 Neut % (Auto) 67.7 % 09/22/24 04:41 Lymph % (Auto) 18.7 % 09/22/24 04:41 [place] % (Auto) 8.6 % 09/22/24 04:41 Eos % (Auto) 1.1 % 09/22/24 04:41 Baso % (Auto) 0.4 % 09/22/24 04:41 Neut # (Auto) 6.59 10^3/uL (1.8-7.7) 09/22/24 04:41 Lymph # (Auto) 1.8 10^3/uL (0.8-4.8) 09/22/24 04:41 [place] # (Auto) 0.8 10^3/uL (0.2-0.9) 09/22/24 04:41 Eos # (Auto) 0.1 10^3/uL (0.0-0.8) 09/22/24 04:41 Baso # (Auto) 0.0 10^3/uL (0.0-0.1) 09/22/24 04:41 Nucleated RBC % (auto) 0 % 09/22/24 04:41 Nucleated RBCs # 0.0 /100WBC 09/22/24 04:41 Sodium 143 mmol/L (136-145) 09/22/24 04:41 Potassium 4.8 mmol/L (3.5-5.1) 09/22/24 04:41 Chloride 107 mmol/L (98-107) 09/22/24 04:41 Carbon Dioxide 26 mmol/L (22-29) 09/22/24 04:41 Anion Gap 14.8 (5-19) 09/22/24 04:41 BUN 42 mg/dL (8-23) H 09/22/24 04:41 Creatinine 0.7 mg/dL (0.7-1.2) 09/22/24 04:41 GFR Calculation 111.5 mL/min (90-130) 09/22/24 04:41 Glucose 114 mg/dL (65-115) 09/22/24 04:41 Calculated Osmolality 307 mOsm/kg (285-295) H 09/22/24 04:41 Lactic Acid 1.8 mmol/L (0.5-2.2) 09/20/24 11:32 Calcium 8.3 mg/dL (8.5-10.5) L 09/22/24 04:41 Total Bilirubin 0.8 mg/dL (0.15-1.2) 09/20/24 11:32 AST 25 U/L (0-40) 09/20/24 11:32 ALT 27 U/L (0-41) 09/20/24 11:32 Alkaline Phosphatase 83 U/L (40-130) 09/20/24 11:32 NT-Pro-B Natriuret Pep 5649 pg/mL (0-125) H 09/20/24 11:32 Total Protein 6.4 g/dL (6.6-8.7) L 09/20/24 11:32 Albumin 2.7 g/dL (3.5-5.2) L 09/20/24 11:32 Globulin 3.7 g/dL (1.3-4.6) 09/20/24 11:32 Lipase 1481 U/L (13-60) H 09/20/24 11:32 Urine Color Dark yellow (Yellow) A 09/20/24 13:16 Urine Appearance Turbid (CLEAR) A 09/20/24 13:16 Urine pH 5.0 (5-7) 09/20/24 13:16 Ur Specific [place] 1.019 (1.005-1.030) 09/20/24 13:16 Urine Protein 1+ (Negative) A 09/20/24 13:16 Urine Glucose (UA) Negative (Normal) 09/20/24 13:16 Urine Ketones Trace (Negative) 09/20/24 13:16 Urine Blood Negative (Negative) 09/20/24 13:16 Urine Nitrate Negative (Negative) 09/20/24 13:16 Urine Bilirubin 1+ (Negative) H 09/20/24 13:16 Urine Urobilinogen 1.0 mg/dL (Negative) 09/20/24 13:16 Ur Leukocyte Esterase 2+ (Negative) A 09/20/24 13:16 Urine RBC 6-10 /hpf (0-2) 09/20/24 13:16 Urine WBC 21-50 /hpf (0-5) H 09/20/24 13:16 Ur Squamous Epith Cells 21-50 /hpf (0-5) H 09/20/24 13:16 Amorphous Sediment Not Reportable 09/20/24 13:16 Urine Bacteria None seen /hpf (NONE) 09/20/24 13:16 Hyaline Casts 38.88 /lpf 09/20/24 13:16 Urine Sperm 1+ /hpf 09/20/24 13:16 Vitals Last Vital Signs Temp 97.8 F 09/22/24 07:14 Pulse 81 09/22/24 08:29 Resp 18 09/22/24 08:29 BP 128/71 09/22/24 07:14 Pulse Ox 90 09/22/24 08:52 O2 Del Method Room Air 09/22/24 08:29 O2 Flow Rate 3 09/22/24 08:52 Discharge Plan Discharge Patient Disposition: Home Condition: Serious Prescriptions: New cefdinir 300 mg capsule 300 mg PO BID 5 Days Qty: 10 0RF Continued gabapentin [Neurontin] 300 mg capsule 300 mg PO BEDTIME montelukast [Singulair] 10 mg tablet 10 mg PO QAM ibuprofen [IBU] 800 mg tablet 800 mg PO BID loratadine [Allergy Relief (loratadine)] 10 mg tablet 10 mg PO QAM lisinopril 20 mg tablet 20 mg PO QAM aspirin 325 mg tablet,delayed release (DR/EC) 325 mg PO QAM paroxetine HCl 30 mg tablet 30 mg PO BEDTIME hydrochlorothiazide 12.5 mg tablet 12.5 - 25 mg PO QAM guaifenesin [Mucinex] 600 mg Tablet Extended Release 12hr 600 mg PO QAM tramadol 50 mg tablet 50 mg PO TID PRN (Reason: Pain) meloxicam 7.5 mg tablet 7.5 mg PO BID ergocalciferol (vitamin D2) 1,250 mcg (50,000 unit) capsule See Rx Instructions .ROUTE .COMPLEX Rx Instructions: TAKE ONE CAPSULE BY MOUTH TWO times EVERY WEEK albuterol sulfate 90 mcg/actuation HFA aerosol inhaler 2 inh INHALATION QID PRN (Reason: Shortness Of Breath Or Wheezing) Discharge Order = DC NOW: Discharge Order (Routine); Ordered 09/22/24 Ordered By: Marlon Garza Other Ambulatory Orders: DME: Oxygen (Order) Location: None Selected Ordered By: Marlon Garza Referrals: Marilynn Canales [Primary Care Provider] - 09/27/24 9:30 am Discharge Diet: Usual diet Discharge Activity: Resume usual activity Patient Instructions: Opioid Safety, Patient Portal & Shayla Instructions Discharge Attestations Time Spent in Discharge Care*: greater than 30 min Quality Metrics Clinical Quality Measures [ No reported AMI, CVA or VTE this stay] Coding Level of Care Code Acute Code for [facility] Fwd Diagnoses Asthma exacerbation J45.901 Acute kidney injury N17.9 Pneumonia J18.9 Benign essential HTN I10 Smoking addiction F17.200
[2024-09-22 11:40] VITALS: BP 108/67; PULSE 107; RESP 17; TEMP 36.5; O2SAT 95
[2024-09-22 13:55] VITALS: BP 108/67; PULSE 107; RESP 17; TEMP 36.5; O2SAT 95
--- NOTE | 2024-09-22 14:16 | PC.SOCIAL ---
IMM UPDATED IMM dated and initialed, copy given to patient and copy placed in chart.
== END 2024-09-22 13:20 | disposition home or self-care (01) | DRG 193 ==
LOC: ER 16:04 → ICU 16:37 → MEDSURG 09-21 16:24
PROVIDERS: Admitting Provider Internal Medicine; Emergency Provider Emergency Medicine; PCP Internal Medicine; Visit Provider Internal Medicine
DX: J18.9 Pneumonia, unspecified organism (principal); J96.01 Acute respiratory failure with hypoxia; J45.901 Unspecified asthma with (acute) exacerbation; N17.9 Acute kidney failure, unspecified; I12.9 Hypertensive chronic kidney disease with stage 1 through stage 4 chronic kidney disease, or unspecified chronic kidney disease; N18.2 Chronic kidney disease, stage 2 (mild); F17.210 Nicotine dependence, cigarettes, uncomplicated; I95.9 Hypotension, unspecified; E87.6 Hypokalemia; R51.9 Headache, unspecified; G62.9 Polyneuropathy, unspecified; F32.A Depression, unspecified; M54.40 Lumbago with sciatica, unspecified side; G89.29 Other chronic pain; M16.11 Unilateral primary osteoarthritis, right hip; Z79.82 Long term (current) use of aspirin; Z79.891 Long term (current) use of opiate analgesic
CPT/HCPCS: 36415; 71045; 71250; 74176; 80048; 80053; 81001; 83605; 83690; 83880; 85025; 87040; 93005; 94640; 94760; 96365; 96367; 96372; 96375; 99285; J0696; J1650; J2543; J2919; J3373; J7030; J7040; J7050; J7613; J9999